=== PATIENT | female | born 1955 | race Caucasian/White ===

== ENCOUNTER 2020-07-09 15:30 | Emergency (ER) | payer OTHER ==
[2020-07-09] MEDS ORDERED: water pill PO (16:14)
[2020-07-09] MEDS ORDERED: HYDR12.55 PO (16:14)
--- NOTE | 2020-07-09 16:19 | REP ---
INDICATION: constipation, rectal pain. COMPARISON: None. TECHNIQUE: Supine AP radiograph. FINDINGS: There is some formed stool in the rectum with the rectum does not appear dilated. There is also some formed stool in the right colon. No colonic or small bowel dilation is seen. The bowel gas pattern is felt to be normal. 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 No acute bony abnormality. IMPRESSION: Normal bowel gas pattern. Some formed stool in the rectum without proximal distension. <Electronically signed by Clifford Irby > 07/09/20 [id number]
[2020-07-09] MEDS ORDERED: FLEET ENEMA PR ONE (17:30)
[2020-07-09] MEDS ORDERED: MIRA3350 PO (18:46)
[2020-07-09 19:20] VITALS: BP 189/91
== END 2020-07-09 19:48 | disposition home or self-care (01) ==
LOC: EDBD 15:30 → M ED 15:30
DX: K59.00 Constipation, unspecified (principal); I10 Essential (primary) hypertension; E66.9 Obesity, unspecified; Z79.899 Other long term (current) drug therapy

== ENCOUNTER 2020-11-11 10:40 | Inpatient (IN) | payer OTHER ==
[2020-11-11] VITALS (10 sets, daily range): BP systolic 135–198; BP diastolic 60–114
[~2020-11-11] VITALS: Ht 154.9 cm; Wt 80.5 kg
[2020-11-11] MEDS: LEVOTHYROXINE 25MCG TABLET (0.025MG) PO SCH (06:00)
[2020-11-11] MEDS: NYSTATIN 100,000 UNITS/GM TOPICAL PWD 15 GM TOP SCH (09:00)
[~2020-11-11 10:40] MED LIST: HYDR12.55 PO; MIRA3350 PO; water pill PO
[2020-11-11] MEDS ORDERED: METO100T5 PO (10:57)
[2020-11-11] MEDS ORDERED: SILV50CR (10:57)
[2020-11-11] MEDS ORDERED: FURO20TA2 PO (10:57)
[2020-11-11] MEDS ORDERED: POTA1TAB14 PO (10:57)
[2020-11-11] MEDS ORDERED: FUROSEMIDE 40MG/4ML VIAL (J1940) IV SCH ×2 (12:00→21:00)
[2020-11-11 12:45] LABS: BASO % 0.8 % (0.0-1.0); EOS # 0.2 10^3/uL (0.0-0.5); HEMATOCRIT 37.2 % (36.0-47.0); HEMOGLOBIN 11.3 g/dl (12.0-15.5); LYMPH # 1.1 10^3/uL (1.5-5.0); LYMPH % 19.8 % (24.0-44.0); MEAN CORPUSCULAR HEMOGLOBIN 27.9 pg (27.0-33.0); MEAN CORPUSCULAR HGB CONC 30.4 g/dl (32.0-36.5); MEAN CORPUSCULAR VOLUME 91.9 fl (80.0-96.0); MONO # 0.3 10^3/uL (0.0-0.8); MONO % 5.5 % (2.0-8.0); NEUTROPHILS # 3.7 10^3/uL (1.5-8.5); NEUTROPHILS % 69.9 % (36.0-66.0); PLATELET COUNT, AUTOMATED 187 10^3/uL (150-450); RED BLOOD COUNT 4.05 10^6/uL (4.00-5.40); WHITE BLOOD COUNT 5.3 10^3/uL (4.0-10.0)
[2020-11-11 13:26] LABS: ALT/SGPT 15 U/L (12-78); BILIRUBIN,DIRECT 0.3 MG/DL (0.0-0.2); BILIRUBIN,TOTAL 0.7 MG/DL (0.2-1.0); BLOOD UREA NITROGEN 37 MG/DL (7-18); CALCIUM LEVEL 8.6 MG/DL (8.8-10.2); CARBON DIOXIDE LEVEL 32 MEQ/L (21-32); CHLORIDE LEVEL 109 MEQ/L (98-107); CK-MB VALUE MASS 2.3 NG/ML (<3.6); CPK CREATINE PHOSPHOKINASE 42 U/L (26-192); FREE T4 1.38 NG/DL (0.76-1.46); GLUCOSE, FASTING 118 MG/DL (70-100); MB/CK RELATIVE INDEX 5.48 (< OR =4); POTASSIUM SERUM 4.1 MEQ/L (3.5-5.1); SODIUM LEVEL 145 MEQ/L (136-145); TOTAL PROTEIN 6.6 GM/DL (6.4-8.2); TROPONIN I 0.04 NG/ML (< 0.10)
[2020-11-11] MEDS ORDERED: LABETALOL 100MG/20ML VIAL IV STA (13:35)
--- NOTE | 2020-11-11 13:35 | REP ---
INDICATION: CVA - Nursing interventions must not delay CT. COMPARISON: None. TECHNIQUE: CT BRAIN PERFORMED IN THE AXIAL PLANE. CORONAL RECONSTRUCTION IMAGES ARE PERFORMED. FINDINGS: There is mild atrophy and periventricular small vessel ischemic change. There is no midline shift or mass effect. There is no acute intracranial hemorrhage. There is no extra-axial fluid collection. Bone window examination is unremarkable. The visualized paranasal sinuses and mastoid air cells are clear. IMPRESSION: No acute intracranial hemorrhage, midline shift or mass effect. Very mild atrophy and periventricular small vessel ischemic change. <Electronically signed by Dk Friend > 11/11/20 [id number]
[2020-11-11] MEDS ORDERED: METF10004 PO (13:41)
[2020-11-11] MEDS ORDERED: ASPIRIN 325 MG TAB PO ONE (13:45)
[2020-11-11 14:12] LABS: INR 1.1; PROTHROMBIN TIME 14.4 SECONDS (12.5-14.3)
[2020-11-11] MEDS ORDERED: niCARdipine IV 40 MG in IV 1 EA IV SCH ×2 (14:12→16:19)
[2020-11-11 14:13] LABS: PARTIAL THROMBOPLASTIN TIME 30.8 SECONDS (24.2-38.5)
--- NOTE | 2020-11-11 14:19 | REP ---
INDICATION: CVA. COMPARISON: None. TECHNIQUE: Portal AP chest with the patient semi upright. FINDINGS: The right hemidiaphragm and right costophrenic angle are obscured suggesting a right lung infiltrate and/or pleural effusion. Left lung is clear. Cardiac size is enlarged. The brandi, mediastinum, and skeletal structures are unremarkable. IMPRESSION: Right lung infiltrate/effusion/combination. Cardiomegaly. <Electronically signed by Dk Gibbs > 11/11/20 [id number]
[2020-11-11 14:51] LABS: RSV AMPLIFICATION NEGATIVE (NEGATIVE)
--- NOTE | 2020-11-11 14:53 | HPEPDOC ---
General Date of Admission 11/11/20 Date of Service: Nov 11, 2020 Chief Complaint The patient is a 65-year-old female admitted with a reason for visit of arm numbness. Source: Patient Exam Limitations: Mild cognitive slowing Timing/Duration: 4-6 hours History of Present Illness Patient is 65 years old female with past history of hypertension, urinary incontinence, type 2 diabetes, hyperlipidemia presented to the hospital with left jaw and left arm weakness. Patient stated that in the morning around 9:30 she had left jaw numbness with left arm numbness lasted around 30 minutes. After 30 minutes his symptoms resolved. Patient denied any headache, any focal weaknesses, slurry speech, visual disturbance. Patient extremely poor historian. Patient denied any fever or chills, diarrhea. In ER patient was found to have blood pressure of 234/115, labs shows no leukocytosis, hemoglobin 11.3, creatinine 1.3, troponin 0.04, TSH 8.1. CT head negative for acute bleed or ischemic stroke. EKG negative for acute ischemic changes Home Medications Scheduled Furosemide (Furosemide) 20 Mg Tablet, 20 MG PO DAILY, (Reported) Metformin HCl (Metformin HCl) 1,000 Mg Tablet, 1,000 MG PO DAILY, (Reported) ALL OUT OF THIS MED, HAS NOT TAKEN IN ABOUT 1 MONTH Metoprolol Tartrate (Metoprolol Tartrate) 100 Mg Tablet, 100 MG PO DAILY, (Reported) Potassium Chloride (Potassium Chloride) 20 Meq Tablet.er, 20 MEQ PO DAILY, (Reported) Allergies Coded Allergies: codeine (Verified Adverse Reaction, Mild, nausea, 11/11/20) Past Medical History Medical History hypertension, urinary incontinence, type 2 diabetes, hyperlipidemia Family History I personally reviewed family medical history and found not pertinent Social History * Smoker: Denies Alcohol: Denies Drugs: denies A-FIB/CHADSVASC A-FIB History Current/History of A-Fib/PAF?: No Current PO Anticoag Therapy: No Review of Systems Constitutional: Denies: Chills, Fever Eyes: Denies: Pain ENT: Denies: Head Aches Skin: Denies: Rash Pulmonary: Denies: Dyspnea Cardiovascular: Denies: Chest Pain, Palpitations Gastrointestinal: Denies: Nausea Genitourinary: Denies: Dysuria Hematologic: Denies: Bruising Endocrine: Denies: Polydipsia Musculoskeletal: Denies: Neck Pain Neurological: Reports: Numbness Psych: Reports: Mood Normal Physical Examination General Exam: Positive: Alert, Cooperative Eye Exam: Positive: PERRLA ENT Exam: Positive: Atraumatic Neck Exam: Positive: Supple, JVD, thyromegaly Chest Exam: Positive: Clear to auscultation Heart Exam: Positive: Rate Normal Telemetry: Positive: No significant arrhythmia Abdomen Exam: Positive: Normal bowel sounds Extremity Exam: Positive: Swelling Skin Exam: Positive: Breakdown (multiple skin breakdown of right distal leg, with mild erythema, skin blister) Neuro Exam: Positive: Strength at 5/5 X4 ext, Cranial Nerves 3-12 NL, Other (mild left eye ptosis) Psych Exam: Positive: Mental status NL Vital Signs Vital Signs Date Time Temp Pulse Resp B/P (MAP) Pulse Ox O2 Delivery O2 Flow Rate FiO2 11/11/20 13:56 61 229/102 11/11/20 12:29 97.5 11/11/20 10:55 16 96 Room Air Laboratory Data Labs 24H Laboratory Tests 2 11/11/20 11:01: Immature Granulocyte % (Auto) 0.0, Neutrophils (%) (Auto) 69.9H, Lymphocytes (%) (Auto) 19.8L, Monocytes (%) (Auto) 5.5, Eosinophils (%) (Auto) 4.0H, Basophils (%) (Auto) 0.8, Neutrophils # (Auto) 3.7, Lymphocytes # (Auto) 1.1L, Monocytes # (Auto) 0.3, Eosinophils # (Auto) 0.2, Basophils # (Auto) 0.0, Nucleated Red B lood Cells % (auto) 0.0, Anion Gap 4L, Glomerular Filtration Rate 44.0L, Calcium Level 8.6L, Total Bilirubin 0.7, Direct Bilirubin 0.3H, Aspartate Amino Transf (AST/SGOT) 18, Alanine Aminotransferase (ALT/SGPT) 15, Alkaline Phosphatase 282H, Total Creatine Kinase 42, Creatine Kinase MB 2.3, Creatine Kinase MB Relative Index 5.48H, Troponin I 0.04, Total Protein 6.6, Albumin 3.0L, Albumin/Globulin Ratio 0.8L, Thyroid Stimulating Hormone (TSH) 8.180H, Free Thyroxine 1.38 11/11/20 12:15: Prothrombin Time 14.4H, Prothromb Time International Ratio 1.10, Activated Partial Thromboplast Time 30.8 11/11/20 13:53: CBC/BMP Laboratory Tests 11/11/20 11:01 Assessment/Plan Patient is 65 years old female with past history of hypertension, urinary inc ontinence, type 2 diabetes, hyperlipidemia presented to the hospital with left jaw and left arm weakness. Patient stated that in the morning around 9:30 she had left jaw numbness with left arm numbness lasted around 30 minutes. After 30 minutes his symptoms resolved. Patient denied any headache, any focal weaknesses, slurry speech, visual disturbance. Patient extremely poor historian. Patient denied any fever or chills, diarrhea. In ER patient was found to have blood pressure of 234/115, labs shows no leukocytosis, hemoglobin 11.3, creatinine 1.3, troponin 0.04, TSH 8.1. CT head negative for acute bleed or ischemic stroke. EKG negative for acute ischemic changes Problems (1) TIA (transient ischemic attack) Status: Acute Problem Text: Patient has multiple risk factors CVA including type 2 diabetes, hypertension, obesity CT head negative We'll proceed with MRA and MRI of the brain Aspirin, statin (2) Hypertensive emergency Status: Acute Problem Text: Will control blood pressure with nicardipine drip Permissive hypertension for next 8 hours to keep blood pressure in the range 170-180 (3) Hyperlipidemia Status: Chronic Problem Text: I started atorvastatin Will check liver profile (4) Type 2 diabetes mellitus Status: Chronic Problem Text: Diabetes diet Insulin sliding scale (5) CHF (congestive heart failure) Status: Acute Problem Text: Patient has significant legs edema, more on the right leg, plus JVD Will check Doppler ultrasound for DVT Cardiac diet Echo, cardiac diet I's and O's Lasix IV twice a day (6) Hypothyroidism Status: Chronic Problem Text: TSH elevated to 8 I started levothyroxine 25 g daily I will check anti-TPO antibody, thyroid profile, lipid profile (7) NELY (acute kidney injury) Status: Acute Problem Text: Creatinine elevated 1.3 Could be secondary to intravascular depletion in top of diabetes nephropathy Continue to monitor Plan / VTE VTE Prophylaxis Ordered?: Yes VICENTA FREDERICK DO Nov 11, 2020 14:53
--- NOTE | 2020-11-11 15:46 | REP ---
INDICATION: dvt COMPARISON: None. TECHNIQUE: Real time compression and duplex Doppler interrogation of the right lower extremity deep venous system is performed. FINDINGS: The right common femoral, superficial femoral and popliteal veins are fully compressible with transducer pressure and demonstrate normal spontaneous and phasic flow, without evidence of deep venous thrombosis. IMPRESSION: No evidence of deep venous thrombosis of the right lower extremity femoral popliteal venous system. <Electronically signed by Dk Friend > 11/11/20 0090
--- NOTE | 2020-11-11 16:15 | REP ---
INDICATION: CVA. COMPARISON: Head CT earlier the same day. TECHNIQUE: T1 and diffusion-weighted images obtained. FINDINGS: No evidence of restricted diffusion to suggest acute infarction. 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 IMPRESSION: No evidence of restricted diffusion to suggest acute infarction. <Electronically signed by Tyler Dobbs > 11/11/20 [id number]
[2020-11-11 17:15] LABS: CHOLESTEROL LEVEL 153 MG/DL (<200); FREE THYROXINE INDEX 3.3 % (1.3-4.8); HDL CHOLESTEROL 45 MG/DL (>40); LDL CHOLESTEROL 86 MG/DL (<100); NON-HDL-C 108 MG/DL; T UPTAKE 41 % (30-39); TRIGLYCERIDES LEVEL 110 MG/DL (<150)
[2020-11-11 17:59] LABS: THYROID PEROXIDASE ANTIBODY < 28.0 U/ML (<60.0)
[2020-11-11] MEDS: ATORVASTATIN 20 MG TAB PO SCH (18:54)
[2020-11-11 19:25] LABS: NT-PRO BNP 21607 PG/ML (<125)
[2020-11-11] MEDS: ACETAMINOPHEN TAB 650MG DOSE (2X325MG) PO PRN (21:53)
[2020-11-12] VITALS (13 sets, daily range): BP systolic 118–169; BP diastolic 58–79
[2020-11-12 05:17] LABS: HEMATOCRIT 35.5 % (36.0-47.0); HEMOGLOBIN 10.9 g/dl (12.0-15.5); MEAN CORPUSCULAR HEMOGLOBIN 27.3 pg (27.0-33.0); MEAN CORPUSCULAR HGB CONC 30.7 g/dl (32.0-36.5); PLATELET COUNT, AUTOMATED 185 10^3/uL (150-450); RED BLOOD COUNT 3.99 10^6/uL (4.00-5.40)
[2020-11-12 05:38] LABS: ALBUMIN 2.9 GM/DL (3.2-5.2); BILIRUBIN,TOTAL 0.7 MG/DL (0.2-1.0); CALCIUM LEVEL 8.5 MG/DL (8.8-10.2); CREATININE FOR GFR 1.3 MG/DL (0.55-1.30); POTASSIUM SERUM 3.5 MEQ/L (3.5-5.1); TOTAL PROTEIN 6.8 GM/DL (6.4-8.2)
[2020-11-12] MEDS: LEVOTHYROXINE 25MCG TABLET (0.025MG) PO SCH (06:31)
[2020-11-12] MEDS: NYSTATIN 100,000 UNITS/GM TOPICAL PWD 15 GM TOP SCH (08:18)
[2020-11-12] MEDS: ENOXAPARIN 40MG/0.4ML SYRINGE (J1650 PER 10MG) SC SCH (08:18)
[2020-11-12] MEDS: FUROSEMIDE 40MG/4ML VIAL (J1940) IV SCH ×3 (08:20→23:33)
[2020-11-12] MEDS: ASPIRIN 81 MG CHEW TABLET PO SCH (08:20)
[2020-11-12] MEDS: ATORVASTATIN 20 MG TAB PO SCH (08:21)
[2020-11-12] MEDS: POTASSIUM CHLORIDE 10 MEQ SR TABLET PO SCH (08:22)
[2020-11-12] MEDS: METOPROLOL TARTRATE 100 MG TAB PO SCH (08:22)
[2020-11-12] MEDS ORDERED: POTASSIUM CHLORIDE 10 MEQ SR TABLET PO ONE (12:00)
--- NOTE | 2020-11-12 12:17 | IPNPDOC ---
Text Note Date of Service The patient was seen on 11/12/20. NOTE Subjective: Patient stated that she feels better today. She denies any focal n eurological deficits. Objective: GENERAL APPEARANCE: Obese female HEENT: no scleral icterus, plus JVD, EOMI CARDIOVASCULAR: S1S2 LUNGS: Diminished lung sounds bilaterally ABDOMEN: soft & not tender w palpitation MUSCULOSKELETAL: +2 nonpitting edema, mild erythema of the distal part of right leg INTEGUMENT: no generalized pallor NEUROLOGICAL: cranial nerve function from 2-12 intact intact, follows commands, speech not dysarthric, mild left eye ptosis Assessment and plan Patient is 65 years old female with past history of hypertension, urinary incontinence, type 2 diabetes, hyperlipidemia presented to the hospital with left jaw and left arm weakness. Patient stated that in the morning around 9:30 she had left jaw numbness with left arm numbness lasted around 30 minutes. After 30 minutes his symptoms resolved. Patient denied any headache, any focal weaknesses, slurry speech, visual disturbance. Patient extremely poor historian. Patient denied any fever or chills, diarrhea. In ER patient was found to have blood pressure of 234/115, labs shows no leukocytosis, hemoglobin 11.3, creatinine 1.3, troponin 0.04, TSH 8.1. CT head negative for acute bleed or ischemic stroke. EKG negative for acute ischemic changes (1) TIA (transient ischemic attack) Patient has multiple risk factors CVA including type 2 diabetes, hypertension, obesity CT head negative, brain MRI negative for stroke, MRA with contrast was not done due to compromised kidney function Will proceed with Doppler carotid ultrasound No focal neurological deficiency today Aspirin, statin (2) Hypertensive emergency/hypertension Resolved Continue lisinopril 20 mg, amlodipine 10 mg by mouth (3) Hyperlipidemia Continue atorvastatin (4) Type 2 diabetes mellitus Diabetes diet Insulin sliding scale Glucose level under control (5) acute CHF (congestive heart failure) Patient has significant legs edema, more on the right leg, plus JVD Doppler ultrasound for DVT of right leg negative BNP elevated to 21 607 Cardiac diet Await Echo, cardiac diet I's and O's Lasix IV twice a day (6) Hypothyroidism TSH elevated to 8 I started levothyroxine 25 g daily anti-TPO antibody within normal limit (7) NELY (acute kidney injury) Creatinine elevated 1.3 Could be secondary to intravascular depletion in top of diabetes nephropathy Continue to monitor Right leg cellulitis Patient has erythema on the distal part of the right leg superimposed with edema secondary to CHF Will start cefazolin IV VS,Fishbone, I+O VS, Fishbone, I+O Laboratory Tests 11/12/20 04:52 Vital Signs Date Time Temp Pulse Resp B/P (MAP) Pulse Ox O2 Delivery O2 Flow Rate FiO2 11/12/20 09:50 60 118/58 (78) 11/12/20 08:14 98.4 20 91 Room Air 11/11/20 20:00 2.0 I&O- Last 24 Hours up to 6 AM 11/12/20 06:00 Intake Total 387 ml Output Total 1225 ml Balance -838 ml VICENTA FREDERICK DO Nov 12, 2020 12:17
--- NOTE | 2020-11-12 13:35 | REP ---
INDICATION: TIA COMPARISON: None. TECHNIQUE: Real-time ultrasound evaluation and duplex Doppler interrogation of the extracranial carotid vasculature is performed. FINDINGS: There is mild plaquing and narrowing in both carotid bulbs extending into the internal and external carotid arteries. Luminal narrowing is less than 50%. There is no evidence of hemodynamically significant stenosis of either internal carotid artery. Normal flow velocities are seen. The vertebral arteries demonstrate normal direction of flow. RIGHT LEFT Peak systolic velocity ICA 63.5 cm/s 55.4 cm/s End diastolic velocity ICA 18.5 cm/s 13.3 cm/s Peak systolic velocity CCA 50.2 cm/s 43.7cm/s Peak systolic velocity ECA 53.1 cm/s 67.6 cm/s ICA/CCA ratio 1.3 1.3 IMPRESSION: Bilateral luminal narrowing of the internal carotid arteries less than 50%. No evidence of hemodynamically significant stenosis. <Electronically signed by Dk Friend > 11/12/20 0072
[2020-11-12] MEDS: ceFAZolin SOD 1 GM in D5W MINI-BAG PLUS 50 ML IV SCH ×2 (13:40→20:43)
--- NOTE | 2020-11-12 17:52 | ECGEPIP ---
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
[2020-11-13] VITALS (11 sets, daily range): BP systolic 128–212; BP diastolic 65–108
[2020-11-13] MEDS ORDERED: METOPROLOL TART 50 MG TAB PO ONE (03:40)
[2020-11-13] MEDS: LEVOTHYROXINE 25MCG TABLET (0.025MG) PO SCH (06:07)
[2020-11-13] MEDS: ceFAZolin SOD 1 GM in D5W MINI-BAG PLUS 50 ML IV SCH ×3 (06:07→21:42)
[2020-11-13] MEDS ORDERED: POTASSIUM CHLORIDE 10 MEQ SR TABLET PO ONE (08:10)
[2020-11-13] MEDS: FUROSEMIDE 40MG/4ML VIAL (J1940) IV SCH ×3 (09:25→23:48)
[2020-11-13] MEDS: ENOXAPARIN 40MG/0.4ML SYRINGE (J1650 PER 10MG) SC SCH (09:25)
[2020-11-13] MEDS: ASPIRIN 81 MG CHEW TABLET PO SCH (09:26)
[2020-11-13] MEDS: ATORVASTATIN 20 MG TAB PO SCH (09:29)
[2020-11-13] MEDS: POTASSIUM CHLORIDE 10 MEQ SR TABLET PO SCH (09:29)
[2020-11-13] MEDS: NYSTATIN 100,000 UNITS/GM TOPICAL PWD 15 GM TOP SCH (09:30)
[2020-11-13] MEDS: METOPROLOL TARTRATE 100 MG TAB PO SCH (09:30)
--- NOTE | 2020-11-13 10:47 | ECHO ---
DATE OF PROCEDURE: 11/12/2020 Age: 65 Gender: Female Height: 61 inches Weight: 189 pounds Body Surface Area: 1.88 m2 PATIENT LOCATION: Inpatient ICU Room 3205. REFERRING PHYSICIAN: Kevin Gracia DO. INDICATION: TIA. MEASUREMENTS: 2D Measurements: RV 4.2 cm LV 5.0 cm Septum 1.4 cm Posterior wall 1.4 cm Aortic Root 2.8 cm LA 4.4 cm LVEF 50% Doppler Measurements: AV 1.23 m/s LVOT 0.8 m/s LVOT diameter 1.9 cm MV-E 87, A 89, EA ratio 1 Early mitral deceleration time 236 msec E prime medial 4, A prime medial 3, E prime lateral 4.4 Average E/E prime ratio 20.7/PCWP 27.6 mmHg PV - 0.7 m/s Pulmonary artery acceleration time 100 msec RVSP 37 mmHg IVC 2.0 cm COMMENTS: Sinus bradycardia without intraventricular conduction disturbance. M-mode and 2-dimensional echocardiography was performed with pulse, continuous wave, color flow, and tissue Doppler studies. Moderate symmetrical left ventricle hypertrophy with somewhat speckled appearance suggestive of amyloidosis and global mild hypokinesis. Mildly dilated left atrium with Doppler evidence of grade 1 LV diastolic dysfunction and significantly elevated mean left atrial pressure. Mildly dilated right ventricle with a slight right ventricular free wall hypokinesis and mild pulmonary hypertension. Right atrium upper limits of normal with slightly dilated IVC and slightly reduced respiratory collapse suggestive of at least central venous pressure upper limits of normal to slightly increased. Normal aortic root diameters. Mild aortic valvular sclerosis without functional abnormality. Moderate mitral annular calcification with some thickening of the mitral leaflets with low flow appearance of leaflet motion but no obvious posterior systolic buckling. No inflow tract obstruction but at least moderate insufficiency. Normal appearing tricuspid valve with at least mild insufficiency. Unable to detect any intracardiac mass. Small posterior pericardial effusion fairly localized to the AV groove measuring 0.8 cm at that point but no cardiac chamber compression. MTDD
--- NOTE | 2020-11-13 13:40 | IPNPDOC ---
Text Note Date of Service The patient was seen on 11/13/20. NOTE Subjective: No any acute events overnight. Patient reported that she feels better today. She denied fever or chills. Patient had elevated blood pressure to 175/80 in the morning Objective: GENERAL APPEARANCE: Obese female HEENT: no scleral icterus, plus JVD, EOMI CARDIOVASCULAR: S1S2 LUNGS: Diminished lung sounds bilaterally ABDOMEN: soft & not tender w palpitation MUSCULOSKELETAL: +2 nonpitting edema, mild erythema of the distal part of right leg INTEGUMENT: no generalized pallor NEUROLOGICAL: cranial nerve function from 2-12 intact intact, follows commands, speech not dysarthric, mild left eye ptosis Assessment and plan Patient is 65 years old female with past history of hypertension, urinary incontinence, type 2 diabetes, hyperlipidemia presented to the hospital with left jaw and left arm weakness. Patient stated that in the morning around 9:30 she had left jaw numbness with left arm numbness lasted around 30 minutes. After 30 minutes his symptoms resolved. Patient denied any headache, any focal weaknesses, slurry speech, visual disturbance. Patient extremely poor historian. Patient denied any fever or chills, diarrhea. In ER patient was found to have blood pressure of 234/115, labs shows no leukocytosis, hemoglobin 11.3, creatinine 1.3, troponin 0.04, TSH 8.1. CT head negative for acute bleed or ischemic stroke. EKG negative for acute ischemic changes (1) TIA (transient ischemic attack) Patient has multiple risk factors CVA including type 2 diabetes, hypertension, obesity CT head negative, brain MRI negative for stroke, MRA with contrast was not done due to compromised kidney function Doppler carotid ultrasound No evidence of deep venous thrombosis of the right lower extremity femoral popliteal venous system No focal neurological deficiency Aspirin, statin (2) Hypertensive emergency/hypertension amlodipine 10 mg by mouth I increased the dose of lisinopril to 40 mg, added hydralazine 10 mg every 8 hours (3) Hyperlipidemia Continue atorvastatin (4) Type 2 diabetes mellitus Diabetes diet Insulin sliding scale Glucose level under control (5) acute CHF (congestive heart failure) Patient has significant legs edema, more on the right leg, plus JVD Doppler ultrasound for DVT of right leg negative BNP elevated to 21 607 Cardiac diet Echo showed ejection fraction of 50%, Mildly dilated left atrium with Doppler evidence of grade 1 LV diastolic dysfunction and significantly elevated mean le ft atrial pressure. Mildly dilated right ventricle with a slight right ventricular free wall hypokinesis and mild pulmonary hypertension. Right atrium upper limits of normal with slightly dilated IVC and slightly reduced respiratory collapse suggestive of at least central venous pressure upper limits of normal to slightly increased. Patient developed good urine output around 4 L for past 24 hours Her body weight decreased from 90.5 kg to 87.5 kg cardiac diet I's and O's Lasix IV twice a day Hypothyroidism TSH elevated to 8 I started levothyroxine 25 g daily anti-TPO antibody within normal limit NELY (acute kidney injury) Creatinine elevated 1.3 Could be secondary to intravascular depletion in top of diabetes nephropathy Continue to monitor Right leg cellulitis Patient has erythema on the distal part of the right leg superimposed with edema secondary to CHF Continue cefazolin IV VS,Fishbone, I+O VS, Fishbone, I+O Vital Signs Date Time Temp Pulse Resp B/P (MAP) Pulse Ox O2 Delivery O2 Flow Rate FiO2 11/13/20 12:00 2.0 11/13/20 09:28 66 178/88 11/13/20 09:00 97.5 24 98 Room Air I&O- Last 24 Hours up to 6 AM 11/13/20 06:00 Intake Total 710 ml Output Total 2350 ml Balance -1640 ml VICENTA FREDERICK DO Nov 13, 2020 13:40
[2020-11-13] MEDS: **hydrALAZINE** 10 MG TAB PO SCH ×2 (14:32→21:41)
[2020-11-14] VITALS (8 sets, daily range): BP systolic 127–182; BP diastolic 58–95
[2020-11-14 06:26] LABS: BASO % 0.6 % (0.0-1.0); EOS # 0.2 10^3/uL (0.0-0.5); EOS % 4.9 % (0.0-3.0); HEMATOCRIT 35.5 % (36.0-47.0); LYMPH # 1.1 10^3/uL (1.5-5.0); LYMPH % 22.2 % (24.0-44.0); MEAN CORPUSCULAR HEMOGLOBIN 27.4 pg (27.0-33.0); MEAN CORPUSCULAR VOLUME 88.5 fl (80.0-96.0); MONO # 0.5 10^3/uL (0.0-0.8); MONO % 9.3 % (2.0-8.0); NEUTROPHILS # 3.1 10^3/uL (1.5-8.5); NEUTROPHILS % 62.8 % (36.0-66.0); PLATELET COUNT, AUTOMATED 176 10^3/uL (150-450); RED BLOOD COUNT 4.01 10^6/uL (4.00-5.40); WHITE BLOOD COUNT 4.9 10^3/uL (4.0-10.0)
[2020-11-14] MEDS: LEVOTHYROXINE 25MCG TABLET (0.025MG) PO SCH (06:35)
[2020-11-14] MEDS: ceFAZolin SOD 1 GM in D5W MINI-BAG PLUS 50 ML IV SCH ×3 (06:36→22:14)
[2020-11-14] MEDS: **hydrALAZINE** 10 MG TAB PO SCH ×3 (06:37→17:15)
[2020-11-14 07:01] LABS: BILIRUBIN,TOTAL 0.7 MG/DL (0.2-1.0); CALCIUM LEVEL 8.8 MG/DL (8.8-10.2); CREATININE FOR GFR 1.24 MG/DL (0.55-1.30); GLOMERULAR FILTRATION RATE 46.5 (>45); POTASSIUM SERUM 3.5 MEQ/L (3.5-5.1); TOTAL PROTEIN 6.8 GM/DL (6.4-8.2)
[2020-11-14] MEDS: NYSTATIN 100,000 UNITS/GM TOPICAL PWD 15 GM TOP SCH (08:38)
[2020-11-14] MEDS: FUROSEMIDE 40MG/4ML VIAL (J1940) IV SCH ×2 (08:39→17:15)
[2020-11-14] MEDS: ENOXAPARIN 40MG/0.4ML SYRINGE (J1650 PER 10MG) SC SCH (08:39)
[2020-11-14] MEDS: ATORVASTATIN 20 MG TAB PO SCH (08:39)
[2020-11-14] MEDS: METOPROLOL TARTRATE 100 MG TAB PO SCH (08:39)
[2020-11-14] MEDS: ASPIRIN 81 MG CHEW TABLET PO SCH (08:39)
[2020-11-14] MEDS: POTASSIUM CHLORIDE 10 MEQ SR TABLET PO SCH (08:40)
--- NOTE | 2020-11-14 14:55 | IPNPDOC ---
Text Note Date of Service The patient was seen on 11/14/20. NOTE Subjective: No any acute events. Patient stated that she feels little bit bett er. In the morning her systolic blood pressure 178, after morning pills blood pressure normalized. Objective: GENERAL APPEARANCE: Obese female HEENT: no scleral icterus, plus JVD, EOMI CARDIOVASCULAR: S1S2 LUNGS: Diminished lung sounds bilaterally ABDOMEN: soft & not tender w palpitation MUSCULOSKELETAL: +2 nonpitting edema, mild erythema of the distal part of right leg INTEGUMENT: no generalized pallor NEUROLOGICAL: cranial nerve function from 2-12 intact intact, follows commands, speech not dysarthric, mild left eye ptosis Assessment and plan Patient is 65 years old female with past history of hypertension, urinary incontinence, type 2 diabetes, hyperlipidemia presented to the hospital with left jaw and left arm weakness. Patient stated that in the morning around 9:30 she had left jaw numbness with left arm numbness lasted around 30 minutes. After 30 minutes his symptoms resolved. Patient denied any headache, any focal weaknesses, slurry speech, visual disturbance. Patient extremely poor historian. Patient denied any fever or chills, diarrhea. In ER patient was found to have blood pressure of 234/115, labs shows no leukocytosis, hemoglobin 11.3, creatinine 1.3, troponin 0.04, TSH 8.1. CT head negative for acute bleed or ischemic stroke. EKG negative for acute ischemic changes (1) TIA (transient ischemic attack) Patient has multiple risk factors CVA including type 2 diabetes, hypertension, obesity CT head negative, brain MRI negative for stroke, MRA with contrast was not done due to compromised kidney function. Will proceed with MRA today Doppler carotid ultrasound showed Bilateral luminal narrowing of the internal carotid arteries less than 50%. No evidence of hemodynamically significant stenosis. No focal neurological deficiency Continue with Aspirin, statin (2) Hypertensive emergency/hypertension amlodipine 10 mg by mouth I increased the dose of lisinopril to 40 mg, added hydralazine 10 mg every 8 hours (3) Hyperlipidemia Continue atorvastatin (4) Type 2 diabetes mellitus Diabetes diet Insulin sliding scale Glucose level under control (5) acute diastolic CHF (congestive heart failure) Patient has significant legs edema, more on the right leg, plus JVD Doppler ultrasound for DVT of right leg negative BNP elevated to 21 607 Cardiac diet Echo showed ejection fraction of 50%, Mildly dilated left atrium with Doppler evidence of grade 1 LV diastolic dysfunction and significantly elevated mean left atrial pressure. Mildly dilated right ventricle with a slight right ventricular free wall hypokinesis and mild pulmonary hypertension. Right atrium upper limits of normal with slightly dilated IVC and slightly reduced respiratory collapse suggestive of at least central venous pressure upper limits of normal to slightly increased. Her body weight decreased from 90.5 kg to 81.5 kg cardiac diet I's and O's Lasix IV twice a day Hypothyroidism TSH elevated to 8 Continue levothyroxine 25 g daily anti-TPO antibody within normal limit NELY (acute kidney injury) Improved, creatinine 1.2 Could be secondary to intravascular depletion in top of diabetes nephropathy Continue to monitor Right leg cellulitis Improved Patient has erythema on the distal part of the right leg superimposed with edema secondary to CHF Continue cefazolin IV VS,Fishbone, I+O VS, Fishbone, I+O Laboratory Tests 11/14/20 05:58 Vital Signs Date Time Temp Pulse Resp B/P (MAP) Pulse Ox O2 Delivery O2 Flow Rate FiO2 11/14/20 13:51 150/70 11/14/20 13:48 97.0 59 18 99 Nasal Cannula 2.0 I&O- Last 24 Hours up to 6 AM 11/14/20 05:59 Intake Total 1020 ml Output Total 2000 ml Balance -980 ml VICENTA FREDERICK DO Nov 14, 2020 14:55
[2020-11-15 00:45] VITALS: BP 147/73
[2020-11-15] MEDS: **hydrALAZINE** 10 MG TAB PO SCH ×4 (01:09→21:54)
[2020-11-15] MEDS: FUROSEMIDE 40MG/4ML VIAL (J1940) IV SCH ×3 (01:11→16:45)
[2020-11-15 04:00] VITALS: BP 173/74
[2020-11-15] MEDS: ceFAZolin SOD 1 GM in D5W MINI-BAG PLUS 50 ML IV SCH ×2 (04:38→13:25)
[2020-11-15] MEDS: LEVOTHYROXINE 25MCG TABLET (0.025MG) PO SCH (05:23)
[2020-11-15 05:42] LABS: BASO % 0.5 % (0.0-1.0); EOS # 0.2 10^3/uL (0.0-0.5); HEMATOCRIT 35.6 % (36.0-47.0); LYMPH # 1.3 10^3/uL (1.5-5.0); LYMPH % 24.4 % (24.0-44.0); MEAN CORPUSCULAR HEMOGLOBIN 27.4 pg (27.0-33.0); MEAN CORPUSCULAR HGB CONC 30.9 g/dl (32.0-36.5); MEAN CORPUSCULAR VOLUME 88.8 fl (80.0-96.0); MONO # 0.5 10^3/uL (0.0-0.8); MONO % 9.3 % (2.0-8.0); NEUTROPHILS # 3.4 10^3/uL (1.5-8.5); NEUTROPHILS % 61.3 % (36.0-66.0); PLATELET COUNT, AUTOMATED 180 10^3/uL (150-450); RED BLOOD COUNT 4.01 10^6/uL (4.00-5.40); WHITE BLOOD COUNT 5.5 10^3/uL (4.0-10.0)
[2020-11-15 06:06] LABS: ALBUMIN 2.9 GM/DL (3.2-5.2); BILIRUBIN,TOTAL 0.5 MG/DL (0.2-1.0); CALCIUM LEVEL 8.5 MG/DL (8.8-10.2); CREATININE FOR GFR 1.44 MG/DL (0.55-1.30); GLOMERULAR FILTRATION RATE 39.1 (>45); POTASSIUM SERUM 3.7 MEQ/L (3.5-5.1); TOTAL PROTEIN 6.6 GM/DL (6.4-8.2)
[2020-11-15 08:00] VITALS: BP 143/64
[2020-11-15] MEDS: NYSTATIN 100,000 UNITS/GM TOPICAL PWD 15 GM TOP SCH (09:11)
[2020-11-15] MEDS: ENOXAPARIN 40MG/0.4ML SYRINGE (J1650 PER 10MG) SC SCH (09:12)
[2020-11-15] MEDS: ASPIRIN 81 MG CHEW TABLET PO SCH (09:13)
[2020-11-15] MEDS: ATORVASTATIN 20 MG TAB PO SCH (09:13)
[2020-11-15] MEDS: POTASSIUM CHLORIDE 10 MEQ SR TABLET PO SCH (09:13)
[2020-11-15] MEDS: METOPROLOL TARTRATE 100 MG TAB PO SCH (09:14)
[2020-11-15 12:00] VITALS: BP 121/51
[2020-11-15] MEDS ORDERED: CEPHALEXIN 500 MG CAP PO SCH (13:00)
[2020-11-15 16:00] VITALS: BP 151/63
[2020-11-15] MEDS: CEPHALEXIN 500 MG CAP PO SCH ×2 (16:35→20:47)
--- NOTE | 2020-11-15 17:12 | IPNPDOC ---
Text Note Date of Service The patient was seen on 11/15/20. NOTE Subjective: No any acute events. Blood pressure was stable in the morning and throughout the day. Objective: GENERAL APPEARANCE: Obese female HEENT: no scleral icterus, plus JVD, EOMI CARDIOVASCULAR: S1S2 LUNGS: Diminished lung sounds bilaterally ABDOMEN: soft & not tender w palpitation MUSCULOSKELETAL: +2 nonpitting edema, mild erythema of the distal part of right leg INTEGUMENT: no generalized pallor NEUROLOGICAL: cranial nerve function from 2-12 intact intact, follows commands, speech not dysarthric, mild left eye ptosis Assessment and plan Patient is 65 years old female with past history of hypertension, urinary incontinence, type 2 diabetes, hyperlipidemia presented to the hospital with left jaw and left arm weakness. Patient stated that in the morning around 9:30 she had left jaw numbness with left arm numbness lasted around 30 minutes. After 30 minutes his symptoms resolved. Patient denied any headache, any focal weaknesses, slurry speech, visual disturbance. Patient extremely poor historian. Patient denied any fever or chills, diarrhea. In ER patient was found to have blood pressure of 234/115, labs shows no leukocytosis, hemoglobin 11.3, creatinine 1.3, troponin 0.04, TSH 8.1. CT head negative for acute bleed or ischemic stroke. EKG negative for acute ischemic changes (1) TIA (transient ischemic attack) Patient has multiple risk factors CVA including type 2 diabetes, hypertension, obesity CT head negative, brain MRI negative for stroke, MRA with contrast was not done due to compromised kidney function. Will proceed with MRA today Doppler carotid ultrasound showed Bilateral luminal narrowing of the internal carotid arteries less than 50%. No evidence of hemodynamically significant stenosis. No focal neurological deficiency Continue with Aspirin, statin (2) Hypertensive emergency/hypertension amlodipine 10 mg by mouth I increased the dose of lisinopril to 40 mg, added hydralazine 10 mg every 8 hours Blood pressure normalized and stable since morning (3) Hyperlipidemia Continue atorvastatin (4) Type 2 diabetes mellitus Diabetes diet Insulin sliding scale Glucose level under control (5) acute diastolic CHF (congestive heart failure) Patient has significant legs edema, more on the right leg, plus JVD Doppler ultrasound for DVT of right leg negative BNP elevated to 21 607 Cardiac diet Echo showed ejection fraction of 50%, Mildly dilated left atrium with Doppler evidence of grade 1 LV diastolic dysfunction and significantly elevated mean left atrial pressure. Mildly dilated right ventricle with a slight right ventricular free wall hypokinesis and mild pulmonary hypertension. Right atrium upper limits of normal with slightly dilated IVC and slightly reduced respiratory collapse suggestive of at least central venous pressure upper limits of normal to slightly increased. Her body weight decreased from 90.5 kg to 80.4 kg cardiac diet I's and O's Lasix IV twice a day On 11/14/20 [place] [address] Hypothyroidism TSH elevated to 8 Continue levothyroxine 25 g daily anti-TPO antibody within normal limit NELY (acute kidney injury) Worsening today due to diuresis Continue to monitor Right leg cellulitis Improved Patient has erythema on the distal part of the right leg superimposed with edema secondary to CHF Continued cephalexin by mouth VS,Fishbone, I+O VS, Fishbone, I+O Laboratory Tests 11/15/20 05:22 Vital Signs Date Time Temp Pulse Resp B/P (MAP) Pulse Ox O2 Delivery O2 Flow Rate FiO2 11/15/20 13:29 121/78 11/15/20 12:00 98.5 56 16 99 Nasal Cannula 2.0 I&O- Last 24 Hours up to 6 AM 11/15/20 06:00 Intake Total 1830 ml Output Total 3400 ml Balance -1570 ml VICENTA FREDERICK DO Nov 15, 2020 17:12
[2020-11-15 20:00] VITALS: BP 134/72
[2020-11-15] MEDS ORDERED: SENOKOT S TAB PO PRN (20:35)
[2020-11-15] MEDS ORDERED: MOM 30ML SUSPENSION UDC PO PRN (20:35)
[2020-11-15] MEDS: ACETAMINOPHEN TAB 650MG DOSE (2X325MG) PO PRN (20:47)
[2020-11-16] VITALS: BP 150/69
[2020-11-16 04:00] VITALS: BP 149/68
[2020-11-16 05:23] LABS: BASO % 0.7 % (0.0-1.0); EOS # 0.3 10^3/uL (0.0-0.5); EOS % 4.3 % (0.0-3.0); HEMATOCRIT 39.6 % (36.0-47.0); LYMPH # 1.8 10^3/uL (1.5-5.0); LYMPH % 28.6 % (24.0-44.0); MEAN CORPUSCULAR HEMOGLOBIN 27.8 pg (27.0-33.0); MEAN CORPUSCULAR HGB CONC 30.3 g/dl (32.0-36.5); MEAN CORPUSCULAR VOLUME 91.9 fl (80.0-96.0); MONO # 0.5 10^3/uL (0.0-0.8); MONO % 8.8 % (2.0-8.0); NEUTROPHILS # 3.5 10^3/uL (1.5-8.5); NEUTROPHILS % 57.4 % (36.0-66.0); PLATELET COUNT, AUTOMATED 176 10^3/uL (150-450); RED BLOOD COUNT 4.31 10^6/uL (4.00-5.40); WHITE BLOOD COUNT 6.1 10^3/uL (4.0-10.0)
[2020-11-16] MEDS: LEVOTHYROXINE 25MCG TABLET (0.025MG) PO SCH (05:30)
[2020-11-16 05:32] VITALS: BP 145/63
[2020-11-16] MEDS: **hydrALAZINE** 10 MG TAB PO SCH (05:32)
[2020-11-16 05:34] LABS: ALBUMIN 2.8 GM/DL (3.2-5.2); BILIRUBIN,TOTAL 0.6 MG/DL (0.2-1.0); CALCIUM LEVEL 8.4 MG/DL (8.8-10.2); CREATININE FOR GFR 1.38 MG/DL (0.55-1.30); GLOMERULAR FILTRATION RATE 41.1 (>45); MAGNESIUM LEVEL 2.1 MG/DL (1.8-2.4); TOTAL PROTEIN 7.1 GM/DL (6.4-8.2)
[2020-11-16 08:00] VITALS: BP 135/62
[2020-11-16] MEDS: ASPIRIN 81 MG CHEW TABLET PO SCH (08:25)
[2020-11-16] MEDS: METOPROLOL TARTRATE 100 MG TAB PO SCH (08:25)
[2020-11-16] MEDS: FUROSEMIDE 40MG/4ML VIAL (J1940) IV SCH ×2 (08:25)
[2020-11-16] MEDS: CEPHALEXIN 500 MG CAP PO SCH ×2 (08:25→13:19)
[2020-11-16] MEDS: ENOXAPARIN 40MG/0.4ML SYRINGE (J1650 PER 10MG) SC SCH (08:26)
[2020-11-16] MEDS: NYSTATIN 100,000 UNITS/GM TOPICAL PWD 15 GM TOP SCH (08:26)
[2020-11-16] MEDS: ATORVASTATIN 20 MG TAB PO SCH (08:26)
[2020-11-16] MEDS: POTASSIUM CHLORIDE 10 MEQ SR TABLET PO SCH (08:26)
[2020-11-16] MEDS ORDERED: LISI40TA4 PO (10:47)
[2020-11-16] MEDS ORDERED: LEVO25TA5 PO (10:47)
[2020-11-16] MEDS ORDERED: AMLO1TAB25 PO (10:47)
[2020-11-16] MEDS ORDERED: ASPI81CH8 PO (10:47)
[2020-11-16] MEDS ORDERED: TORS10TA3 PO (10:47)
[2020-11-16] MEDS ORDERED: CEPH500C PO (10:47)
[2020-11-16] MEDS ORDERED: NYST10006 TOP (10:47)
[2020-11-16] MEDS ORDERED: SENN-52 PO (10:47)
[2020-11-16] MEDS ORDERED: HYDR10TAB PO (10:47)
[2020-11-16] MEDS ORDERED: ATOR1TAB21 PO (10:47)
--- NOTE | 2020-11-16 15:54 | DS.PDOC ---
Discharge Summary General Date of Admission Nov 11, 2020 at 14:12 Date of Discharge 11/16/20 Discharge Summary PROCEDURES PERFORMED DURING STAY: [None]. ADMITTING DIAGNOSES: TIA (transient ischemic attack) Hypertensive emergency/hypertension Hyperlipidemia Type 2 diabetes mellitus acute diastolic CHF (congestive heart failure) Hypothyroidism NELY (acute kidney injury) Right leg cellulitis DISCHARGE DIAGNOSES: TIA (transient ischemic attack) Hypertensive emergency/hypertension Hyperlipidemia Type 2 diabetes mellitus acute diastolic CHF (congestive heart failure) Hypothyroidism NELY (acute kidney injury) Right leg cellulitis COMPLICATIONS/CHIEF COMPLAINT: TIA. HISTORY OF PRESENT ILLNESS: Patient is 65 years old female with past history of hypertension, urinary incontinence, type 2 diabetes, hyperlipidemia presented to the hospital with left jaw and left arm weakness. Patient stated that in the morning around 9:30 she had left jaw numbness with left arm numbness lasted around 30 minutes. After 30 minutes his symptoms resolved. Patient denied any headache, any focal weaknesses, slurry speech, visual disturbance. Patient extremely poor historian. Patient denied any fever or chills, diarrhea. In ER patient was found to have blood pressure of 234/115, labs shows no leukocytosis, hemoglobin 11.3, creatinine 1.3, troponin 0.04, TSH 8.1. CT head negative for acute bleed or ischemic stroke. EKG negative for acute ischemic changes HOSPITAL COURSE: During the hospital stay following issue addressed (1) TIA (transient ischemic attack) Patient has multiple risk factors CVA including type 2 diabetes, hypertension, obesity CT head negative, brain MRI negative for stroke, MRA with contrast was not done due to compromised kidney function. Patient refuses MRA Doppler carotid ultrasound showed Bilateral luminal narrowing of the internal carotid arteries less than 50%. No evidence of hemodynamically significant stenosis. No focal neurological deficiency Continue with Aspirin, statin (2) Hypertensive emergency/hypertension amlodipine 10 mg by mouth I increased the dose of lisinopril to 40 mg, added hydralazine 10 mg every 8 hours Blood pressure normalized and stable since morning (3) Hyperlipidemia Continue atorvastatin (4) Type 2 diabetes mellitus Diabetes diet Insulin sliding scale Glucose level under control (5) acute diastolic CHF (congestive heart failure) Patient has significant legs edema, more on the right leg, plus JVD Doppler ultrasound for DVT of right leg negative BNP elevated to 21 607 Cardiac diet Echo showed ejection fraction of 50%, Mildly dilated left atrium with Doppler ev idence of grade 1 LV diastolic dysfunction and significantly elevated mean left atrial pressure. Mildly dilated right ventricle with a slight right ventricular free wall hypokinesis and mild pulmonary hypertension. Right atrium upper limits of normal with slightly dilated IVC and slightly reduced respiratory collapse suggestive of at least central venous pressure upper limits of normal to slightly increased. Her body weight decreased from 90.5 kg to 80.4 kg cardiac diet I's and O's Lasix IV twice a day On 11/14/20 [place] [address] Hypothyroidism TSH elevated to 8 Continue levothyroxine 25 g daily anti-TPO antibody within normal limit NELY (acute kidney injury) Secondary to diuretics Continue to monitor Right leg cellulitis Improved Patient has erythema on the distal part of the right leg superimposed with edema secondary to CHF Continued cephalexin by mouth DISCHARGE MEDICATIONS: Please see below. ALLERGIES: Please see below. PHYSICAL EXAMINATION ON DISCHARGE: VITAL SIGNS: Please see below. GENERAL APPEARANCE: Obese female HEENT: no scleral icterus, plus JVD, EOMI CARDIOVASCULAR: S1S2 LUNGS: Diminished lung sounds bilaterally ABDOMEN: soft & not tender w palpitation MUSCULOSKELETAL: +2 nonpitting edema, mild erythema of the distal part of right leg INTEGUMENT: no generalized pallor NEUROLOGICAL: cranial nerve function from 2-12 intact intact, follows commands, speech not dysarthric, mild left eye ptosis LABORATORY DATA: Please see below. IMAGING: See above PROGNOSIS: Fair ACTIVITY: [As tolerated]. DIET: Cardiac DISPOSITION: Home Health Service. 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 TIME SPENT ON DISCHARGE: 40minutes. Vital Signs/I&Os Vital Signs Date Time Temp Pulse Resp B/P (MAP) Pulse Ox O2 Delivery O2 Flow Rate FiO2 11/16/20 08:00 97.8 69 18 135/62 (86) 91 Room Air 11/15/20 12:00 2.0 I&O- Last 24 Hours up to 6 AM 11/16/20 05:59 Intake Total 870 ml Output Total 2625 ml Balance -1755 ml Laboratory Data Labs 24H Laboratory Tests 2 11/16/20 05:05: Immature Granulocyte % (Auto) 0.2, Neutrophils (%) (Auto) 57.4, Lymphocytes (%) (Auto) 28.6, Monocytes (%) (Auto) 8.8H, Eosinophils (%) (Auto) 4.3H, Basophils (%) (Auto) 0.7, Neutrophils # (Auto) 3.5, Lymphocytes # (Auto) 1.8, Monocytes # (Auto) 0.5, Eosinophils # (Auto) 0.3, Basophils # (Auto) 0.0, Nucleated Red Blood Cells % (auto) 0.0, Anion Gap 3L, Glomerular Filtration Rate 41.1L, Calcium Level 8.4L, Magnesium Level 2.1, Total Bilirubin 0.6, Aspartate Amino Transf (AST/SGOT) 21, Alanine Aminotransferase (ALT/SGPT) 8L, Alkaline Phosphatase 274H, Total Protein 7.1, Albumin 2.8L, Albumin/Globulin Ratio 0.7L CBC/BMP Laboratory Tests 11/16/20 05:05 Microbiology Microbiology 11/11/20 Blood Culture - Preliminary, Resulted No Growth after 72 hours. All specime... 11/11/20 Blood Culture - Preliminary, Resulted No Growth after 72 hours. All specime... Discharge Medications Scheduled Amlodipine Besylate (Amlodipine Besylate) 10 Mg Tablet, 10 MG PO DAILY Aspirin (Children's Aspirin) 81 Mg Tab.chew, 81 MG PO DAILY Atorvastatin Calcium (Atorvastatin Calcium) 20 Mg Tablet, 40 MG PO DAILY Cephalexin (Cephalexin) 500 Mg Capsule, 500 MG PO QID Hydralazine HCl (Hydralazine HCl) 10 Mg Tablet, 10 MG PO TID Levothyroxine Sodium (Levothyroxine Sodium) 25 Mcg Tablet, 25 MCG PO DAILY@06 Lisinopril (Lisinopril) 40 Mg Tablet, 1 TAB PO DAILY Metformin HCl (Metformin HCl) 1,000 Mg Tablet, 1,000 MG PO DAILY, (Reported) ALL OUT OF THIS MED, HAS NOT TAKEN IN ABOUT 1 MONTH Metoprolol Tartrate (Metoprolol Tartrate) 100 Mg Tablet, 100 MG PO DAILY, (Reported) Nystatin (Nystop) 60 Gm Powder, 0 DOSE TOP DAILY Potassium Chloride (Potassium Chloride) 20 Meq Tablet.er, 20 MEQ PO DAILY, (Reported) Torsemide (Torsemide) 10 Mg Tablet, 1 TAB PO DAILY Scheduled PRN Sennosides/Docusate Sodium (Senna Plus Tablet) 1 Each Tablet, 2 TAB PO DAILYPRN PRN for CONSTIPATION Allergies Coded Allergies: codeine (Verified Adverse Reaction, Mild, nausea, 11/11/20) VICENTA FREDERICK DO Nov 16, 2020 15:54
== END 2020-11-16 13:35 | disposition home health service (06) | DRG 194 ==
LOC: M ED 10:40 → EDBD 10:40 → M ED INP 14:12 → ENRESERV 14:57 → M ICU 17:35 → M PCU 11-12 19:10
PROVIDERS: ADMIT Internal Medicine; ATTEND Internal Medicine
DX: I11.0 Hypertensive heart disease with heart failure (principal); N17.9 Acute kidney failure, unspecified; I27.20 Pulmonary hypertension, unspecified; G45.9 Transient cerebral ischemic attack, unspecified; L03.115 Cellulitis of right lower limb; I16.1 Hypertensive emergency; E78.5 Hyperlipidemia, unspecified; E11.9 Type 2 diabetes mellitus without complications; E03.9 Hypothyroidism, unspecified; R32 Unspecified urinary incontinence; Z79.84 Long term (current) use of oral hypoglycemic drugs; Z79.899 Other long term (current) drug therapy; Z88.5 Allergy status to narcotic agent; I50.33 Acute on chronic diastolic (congestive) heart failure

== ENCOUNTER → 2020-12-06 | Outpatient (REF) | payer OTHER ==
[~2020-12-06] MED LIST changes: +AMLO1TAB25 PO; +ASPI81CH8 PO; +ATOR1TAB21 PO; +CEPH500C PO; +FURO20TA2 PO; +HYDR10TAB PO; +LEVO25TA5 PO; +LISI40TA4 PO; +METF10004 PO; +METO100T5 PO; +NYST10006 TOP; +POTA1TAB14 PO; +SENN-52 PO; +SILV50CR; +TORS10TA3 PO
== END ==
LOC: M LAB REF 20:28
PROVIDERS: ATTEND Physician Assistant
DX: N30.01 Acute cystitis with hematuria (principal)

== ENCOUNTER 2020-12-27 21:41 | Inpatient (IN) | payer OTHER ==
[~2020-12-27] VITALS: Ht 154.9 cm; Wt 73.8 kg
[2020-12-27] MEDS: HumaLOG INSULIN (NovoLOG) PER UNIT SC SCH (21:00)
[2020-12-27 22:18] LABS: BASO # 0.1 10^3/uL (0.0-0.2); BASO % 0.6 % (0.0-1.0); EOS # 0.7 10^3/uL (0.0-0.5); EOS % 9.6 % (0.0-3.0); HEMATOCRIT 40.4 % (36.0-47.0); HEMOGLOBIN 12.9 g/dl (12.0-15.5); LYMPH # 1.7 10^3/uL (1.5-5.0); LYMPH % 21.9 % (24.0-44.0); MEAN CORPUSCULAR HEMOGLOBIN 27.6 pg (27.0-33.0); MEAN CORPUSCULAR HGB CONC 31.9 g/dl (32.0-36.5); MEAN CORPUSCULAR VOLUME 86.5 fl (80.0-96.0); MONO # 0.5 10^3/uL (0.0-0.8); MONO % 6.6 % (2.0-8.0); NEUTROPHILS # 4.7 10^3/uL (1.5-8.5); PLATELET COUNT, AUTOMATED 223 10^3/uL (150-450); RED BLOOD COUNT 4.67 10^6/uL (4.00-5.40); WHITE BLOOD COUNT 7.7 10^3/uL (4.0-10.0)
[2020-12-27 22:50] LABS: ALBUMIN 3.3 GM/DL (3.2-5.2); BILIRUBIN,DIRECT 0.2 MG/DL (0.0-0.2); BILIRUBIN,TOTAL 0.4 MG/DL (0.2-1.0); CALCIUM LEVEL 8.1 MG/DL (8.8-10.2); CK-MB VALUE MASS 3.1 NG/ML (<3.6); CREATININE FOR GFR 1.57 MG/DL (0.55-1.30); GLOMERULAR FILTRATION RATE 35.4 (>45); MB/CK RELATIVE INDEX 8.16 (< OR =4); POTASSIUM SERUM 6.2 MEQ/L (3.5-5.1); TOTAL PROTEIN 7.6 GM/DL (6.4-8.2); TROPONIN I 0.03 NG/ML (< 0.10)
[2020-12-27] MEDS ORDERED: HYDR10TAB PO (22:59)
[2020-12-27] MEDS ORDERED: DEXTROSE 50% 50 ML SYRINGE IV STA (23:27)
[2020-12-27] MEDS ORDERED: SODIUM BICARBONATE 8.4% INJ 50 ML SYRINGE IV STA (23:27)
[2020-12-27] MEDS ORDERED: HumuLIN R (REGULAR) INSULIN (NovoLIN R) **100U/ML** PER UNIT IV ONE (23:30)
--- NOTE | 2020-12-28 00:18 | REPVR ---
PROCEDURE INFORMATION: Exam: XR Chest Exam date and time: 12/27/2020 10:23 PM Age: 65 years old Clinical indication: Other: Chest pain TECHNIQUE: Imaging protocol: XR of the chest. Views: 1 view. COMPARISON: MA PORTABLE CHEST X-RAY 11/11/2020 1:46 PM FINDINGS: Lungs: Unremarkable. No consolidation. Pleural spaces: Unremarkable. No pleural effusion. No pneumothorax. Heart/Mediastinum: Unremarkable. No cardiomegaly. Bones/joints: Unremarkable. IMPRESSION: No acute findings. Electronically signed by: Michael Gaitan On 12/28/2020 00:17:19 AM
[2020-12-28] MEDS ORDERED: CALCIUM GLUCONATE 1,000 MG in D5W MINI-BAG PLUS 100 ML IV ONE (00:30)
[2020-12-28] MEDS ORDERED: GLUCOSE 4GM CHEW TABLET PO PRN (00:35)
[2020-12-28] MEDS ORDERED: MAALOX 30 ML SUSP *UDC PO PRN (00:35)
[2020-12-28] MEDS ORDERED: GLUCAGON INJ 1MG VIAL SC PRN (00:35)
[2020-12-28] MEDS ORDERED: DEXTROSE 50% 50 ML SYRINGE IV PRN (00:35)
[2020-12-28] MEDS ORDERED: MOM 30ML SUSPENSION UDC PO PRN (00:35)
[2020-12-28] MEDS ORDERED: TORS10TA3 PO (00:42)
[2020-12-28] MEDS ORDERED: LISI40TA4 PO (00:42)
[2020-12-28] MEDS ORDERED: SENN-23 PO (00:42)
[2020-12-28] MEDS ORDERED: AMLO1TAB25 PO (00:42)
[2020-12-28] MEDS ORDERED: ATOR1TAB21 PO (00:42)
[2020-12-28] MEDS ORDERED: LEVO25TA5 PO (00:42)
[2020-12-28] MEDS ORDERED: ASPI81CH33 PO (00:42)
--- NOTE | 2020-12-28 00:51 | HPEPDOC ---
[facility] Medical History & Physical Date of Admission December 28, 2020 Date of Service: December 28, 2020 Primary Care Physician: JARET MARIE PA-C Attending Physician: LAST BRUNO MD History and Physical TIME OF SERVICE: 110am CHIEF COMPLAINT: passed out HISTORY OF PRESENT ILLNESS: , a 65 yr old female, was recently admitted to our hospital for work-up of a suspected TIA and HTN urgency and during that admission the dose of her Lisinopril was increased and she was s tarted on hydralazine TID; her hydralazine was reduced to once daily according to the pt bc her BP was as low as the 60s. Yesterday evening her son offered to make her a smoothie; when he returned he noticed that his mother had passed out. After a few minutes she regained consciousness; she denied having chest pain, n/v/d/f/c dizziness dyspnea or eating less than usual prior to passing out. REVIEW OF SYSTEMS: 12-point review of systems negative except as listed in HPI PAST MEDICAL/ SURGICAL HISTORY: TIA, hypothyroidism, HFpEF, DM2, Obesity, urinary incontinence, DLP, class 1 obesity and debility (wheel chair bound) SOCIAL HISTORY: doesnt smoke, lives alone but her children stop by to help her with her meds, has a home RN who comes once a week FAMILY HISTORY: cancer ALLERGIES: Please see below. HOME MEDICATIONS: Please see below. PHYSICAL EXAMINATION: Vital Signs Date Time Temp Pulse Resp B/P (MAP) Pulse Ox O2 Delivery O2 Flow Rate FiO2 12/27/20 21:48 97.5 61 20 211/85 Room Air 12/27/20 22:56 96 GENERAL APPEARANCE: well nourished and developed /NAD HEENT: EOMI / MMM&P CARDIOVASCULAR: RRR/NMRG LUNGS: CTAB on RA ABDOMEN: contour obese /soft & NT MUSCULOSKELETAL: NCAT / LINDSEY x4 INTEGUMENT: not flushed, diaphoretic or pale NEUROLOGICAL: CN 2-12 grossly intact / speech not dysarthric PSYCHIATRIC: A&O x 3/ able to understand and follow all commands LABORATORY DATA: Anion Gap 3L, Glomerular Filtration Rate 35.4L, Calcium Level 8.1L, Magnesium Level 2.0, Total Bilirubin 0.4, Direct Bilirubin 0.2, Aspartate Amino Transf (AST/SGOT) 50H, Alanine Aminotransferase (ALT/SGPT) 60, Alkaline Phosphatase 396H, Total Creatine Kinase 38, Creatine Kinase MB 3.1, Creatine Kinase MB Relative Index 8.16H, Troponin I 0.03, Total Protein 7.6, Albumin 3.3, Albumi n/Globulin Ratio 0.8L, Lipase 379 12/27/20 22:03: Immature Granulocyte % (Auto) 0.3, Neutrophils (%) (Auto) 61.0, Lymphocytes (%) (Auto) 21.9L, Monocytes (%) (Auto) 6.6, Eosinophils (%) (Auto) 9.6H, Basophils (%) (Auto) 0.6, Neutrophils # (Auto) 4.7, Lymphocytes # (Auto) 1.7, Monocytes # (Auto) 0.5, Eosinophils # (Auto) 0.7H, Basophils # (Auto) 0.1, Nucleated Red Blood Cells % (auto) 0.0 IMAGING: Chest xray IMPRESSION: No acute findings. // CT head IMPRESSION: Mild cerebral volume loss and chronic white matter changes. No acute intracranial abnormality. MICROBIOLOGY: respiratory panel neg ASSESSMENT: Ms. Cota is a 65 yr old F w HFpEF, DM2, Obesity, urinary incontinence, DLP and debility who is admitted for evaluation of syncope, HTN urgency, hyperkalemia and NELY. PLAN: 1 Syncope Possibly due to HTN encephalopathy or TIA Plan: Telemetry / f/u orthostats, ammonia, VBG to check PCO2 / they day time team may consider MRI brain and CVA work up 2 Hypertensive Emergency Her SBP was 211 in the ER Suspect that the acute elevation in her BP is the cause of the syncopal episode /HTN encephalopathy and is also the cause of the acute rise in creatinine Plan: c/w Amlodipine & Metoprolol / switch Hydralazine from daily to TID / ACEI and diuretic on hold bc of NELY 3 Hyperkalemia 2/2 NELY No peaked T waves on EKG Plan: received calcium gluconate, sodium bicarb and dextrose w insulin in the ER / f/u repeat K / treat NELY 4 NELY Likely due to accelerated HTN Plan: f/u ulytes /hold Lasix and Lisinopril / treat uncontrolled HTN as above / f/u renal US / control BP & trend Cr 5 Chronic HFpEF Clinically compensated & BNP lower than previous visit Plan: f/u Is and Os and weights / low salt diet / c/w BB / diuretic on hold bc of NELY 6 NIDDM2 Plan: diabetic diet / f/u accuchecks / /hypoglycemia protocol / sliding scale insulin / hold oral anti-glycemic / f/u A1C (target A1C is about 8.5% bc she frail ) / f/u UA if she has proteinuria & her GFR recovers above 45 the day time team may consider adding canagliflozin which has been shown to reduce the risk of progression to ESKD, increasing of serum Cr, CV and hospitalization for heart failure 6 Transaminitis Possibly due to fatty liver Plan: f/u liver US and Hepatitis screen 7 DLP Plan: Atorvastatin 8 Class 1 Obesity with co-existing DM Complicates care Plan: the patient can f/u w her PCP for sleep apnea screening & a polysilicon preparation worker consult DVT px w Heparin Dispo: home after at least 2 midnights stay Home Medications Scheduled Amlodipine Besylate (Amlodipine Besylate) 10 Mg Tablet, 10 MG PO DAILY Aspirin (Aspirin) 81 Mg Tab.chew, 81 MG PO DAILY Atorvastatin Calcium (Atorvastatin Calcium) 20 Mg Tablet, 20 MG PO DAILY Hydralazine HCl (Hydralazine HCl) 10 Mg Tablet, 10 MG PO DAILY Levothyroxine Sodium (Levothyroxine Sodium) 25 Mcg Tablet, 25 MCG PO DAILY Metformin HCl (Metformin HCl) 1,000 Mg Tablet, 1,000 MG PO DAILY ALL OUT OF THIS MED, HAS NOT TAKEN IN ABOUT 1 MONTH Metoprolol Tartrate (Metoprolol Tartrate) 25 Mg Tablet, 25 MG PO DAILY Potassium Chloride (Potassium Chloride) 20 Meq Tablet.er, 20 MEQ PO DAILY Sennosides/Docusate Sodium (Senna-S Tablet) 1 Each Tablet, 2 TAB PO DAILY Allergies Coded Allergies: codeine (Verified Adverse Reaction, Mild, nausea, 11/11/20) A-FIB/CHADSVASC A-FIB History Current/History of A-Fib/PAF?: No Current PO Anticoag Therapy: No LAST BRUNO MD December 28, 2020 00:51
--- NOTE | 2020-12-28 01:20 | REPVR ---
PROCEDURE INFORMATION: Exam: CT Head Without Contrast Exam date and time: 12/28/2020 12:05 AM Age: 65 years old Clinical indication: Dizziness; Additional info: Syncope TECHNIQUE: Imaging protocol: Computed tomography of the head without contrast. Radiation optimization: All CT scans at this facility use at least one of these dose optimization techniques: automated exposure control; mA and/or kV adjustment per patient size (includes targeted exams where dose is matched to clinical indication); or iterative reconstruction. COMPARISON: CT Head without contrast 11/11/2020 1:14 PM FINDINGS: Brain: There is mild cerebral volume loss. Changes of chronic white matter microvascular disease are present. No signs of a recent infarction or hemorrhage. Cerebral ventricles: No ventriculomegaly. Bones/joints: Unremarkable. No acute fracture. Paranasal sinuses: Visualized sinuses are unremarkable. No fluid levels. Mastoid air cells: Visualized mastoid air cells are well aerated. Soft tissues: Unremarkable. IMPRESSION: Mild cerebral volume loss and chronic white matter changes. No acute intracranial abnormality. Electronically signed by: Michael Gaitan On 12/28/2020 01:20:32 AM
--- NOTE | 2020-12-28 02:07 | REPVR ---
PROCEDURE INFORMATION: Exam: US Abdomen Complete Exam date and time: 12/28/2020 1:11 AM Age: 65 years old Clinical indication: Other: Refugio, transaminitis; Additional info: Refugio and transaminitis TECHNIQUE: Imaging protocol: Real-time ultrasound of the abdomen with image documentation. COMPARISON: OK Abdomen,Flat Plate KUB 07/09/2020 4:00 PM FINDINGS: Heart: Trace pericardial effusion. Liver: Normal. No mass. Gallbladder: Calculi and sludge in the gallbladder wall measuring up to 9 mm. No gallbladder wall thickening. Trace pericholecystic fluid. Common bile duct: Normal. No stones. No dilation. Pancreas: Visualized pancreas is unremarkable. Right kidney: 1.3 cm cyst in the right kidney. Right kidney is otherwise unremarkable. No hydronephrosis. Left kidney: Normal. No mass. No hydronephrosis. Spleen: Normal. No splenomegaly. Aorta: Normal. No aneurysm. Inferior vena cava: Normal. IMPRESSION: 1. Cholelithiasis and trace pericholecystic fluid. No gallbladder wall thickening or biliary duct dilation to suggest acute cholecystitis. 2. Trace pericardial effusion. Electronically signed by: Michael Gaitan On 12/28/2020 02:07:09 AM
[2020-12-28 02:09] LABS: VENOUS BASE EXCESS -0.6 (-2.0-2.0); VENOUS HCO3 26.1 MEQ/L (23.0-27.0); VENOUS O2 SATURATION 80.2 % (60.0-80.0); VENOUS PARTIAL PRESSURE CO2 51.6 mmHg (38.0-50.0); VENOUS PARTIAL PRESSURE O2 46.1 mmHg (30.0-50.0); VENOUS PH 7.322 UNITS (7.330-7.430); VENOUS STANDARD HCO3 23.6 MEQ/L; VENOUS TOTAL CO2 27.7 MEQ/L (24.0-28.0)
[2020-12-28 02:11] LABS: RSV AMPLIFICATION NEGATIVE (NEGATIVE)
[2020-12-28 02:39] LABS: NT-PRO BNP 3501 PG/ML (<125); POTASSIUM SERUM 5.4 MEQ/L (3.5-5.1); URIC ACID 7.3 MG/DL (2.6-6.0)
[2020-12-28 04:20] LABS: HEMATOCRIT 37.1 % (36.0-47.0); HEMOGLOBIN 11.7 g/dl (12.0-15.5); MEAN CORPUSCULAR HEMOGLOBIN 27.6 pg (27.0-33.0); MEAN CORPUSCULAR HGB CONC 31.5 g/dl (32.0-36.5); MEAN CORPUSCULAR VOLUME 87.5 fl (80.0-96.0); PLATELET COUNT, AUTOMATED 226 10^3/uL (150-450); RED BLOOD COUNT 4.24 10^6/uL (4.00-5.40); WHITE BLOOD COUNT 9.3 10^3/uL (4.0-10.0)
[2020-12-28 04:24] LABS: INR 0.95; PROTHROMBIN TIME 12.9 SECONDS (12.5-14.3)
[2020-12-28 04:25] LABS: PARTIAL THROMBOPLASTIN TIME 29.9 SECONDS (24.2-38.5)
[2020-12-28 04:40] LABS: ALBUMIN 2.9 GM/DL (3.2-5.2); ALT/SGPT 53 U/L (12-78); BILIRUBIN,TOTAL 0.4 MG/DL (0.2-1.0); BLOOD UREA NITROGEN 67 MG/DL (7-18); CALCIUM LEVEL 8.7 MG/DL (8.8-10.2); CARBON DIOXIDE LEVEL 26 MEQ/L (21-32); CHLORIDE LEVEL 112 MEQ/L (98-107); CREATININE FOR GFR 1.58 MG/DL (0.55-1.30); GLOMERULAR FILTRATION RATE 35.2 (>45); GLUCOSE, FASTING 182 MG/DL (70-100); SODIUM LEVEL 142 MEQ/L (136-145); TOTAL PROTEIN 7.1 GM/DL (6.4-8.2)
[2020-12-28 04:50] VITALS: BP 148/67
[2020-12-28 04:55] LABS: HEMOGLOBIN A1c 6.6 %
--- NOTE | 2020-12-28 05:36 | ECGEPIP ---
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
[2020-12-28] MEDS: LEVOTHYROXINE 25MCG TABLET (0.025MG) PO SCH (05:43)
[2020-12-28] MEDS: HEPARIN SOD (PORCINE) 5000UNITS/ML 1ML VIAL/SYRINGE SC SCH ×3 (05:43→21:14)
[2020-12-28] MEDS: HumaLOG INSULIN (NovoLOG) PER UNIT SC SCH ×4 (07:30→20:23)
[2020-12-28 08:02] VITALS: BP 190/80
[2020-12-28] MEDS: **hydrALAZINE** 10 MG TAB PO SCH ×3 (08:34→14:55)
[2020-12-28] MEDS ORDERED: METOPROLOL TARTRATE 100 MG TAB PO SCH (09:00)
[2020-12-28] MEDS ORDERED: TORSEMIDE 10 MG TABLET PO SCH (09:00)
[2020-12-28] MEDS ORDERED: METOPROLOL TART 25 MG TABLET PO SCH (09:00)
[2020-12-28] MEDS ORDERED: lisinopriL 40 MG TAB PO SCH (09:00)
[2020-12-28] MEDS ORDERED: POTASSIUM CHLORIDE 10 MEQ SR TABLET PO SCH (09:00)
--- NOTE | 2020-12-28 09:26 | REP ---
INDICATION: HTN, uncontrolled, NELY. COMPARISON: Comparison is made with the sonogram performed 7-1/2 hours earlier on this date.. TECHNIQUE: Urinary tract sonography. FINDINGS: Scanning at the level of the urinary bladder shows no abnormality. Renal cortical echogenicity pattern is normal bilaterally and contours are smooth. There is no evidence of hydronephrosis on either side. There is a 1.0 x 1.0 x 0.8 cm slightly septated cyst in the upper pole region of the right kidney. There is a tiny trace of fluid adjacent to the liver in Morison's pouch. No other cyst or mass is seen on either side. There is no visible ascites.. The right kidney measures 10.0 x 5.0 x 4.7 cm. Left renal dimensions are 9.1 x 4.9 x 5.2 cm. IMPRESSION: Normal urinary tract sonography. <Electronically signed by Clifford Irby > 12/28/20 [id number]
--- NOTE | 2020-12-28 09:29 | REP ---
INDICATION: syncope COMPARISON: Comparison carotid sonography November 12, 2020.. TECHNIQUE: Real-time ultrasound evaluation and duplex Doppler interrogation of the extracranial carotid vasculature is performed. FINDINGS: Waste. Right carotid: The right common carotid artery shows diffuse intimal thickening but is otherwise unremarkable. There ismild mixed plaquing in the right carotid bulb and proximal ICA on two-dimensional scanning. Color flow and spectral Doppler interrogation are unremarkable on the right. Velocity chart right carotid: Right CCA PSV: 45.5 cm/S Right ICA PSV: 68.7 cm/S Right ICA EDV: 19.6 cm/S Right ECA PSV: 66 cm/S Right ICA/CCA ratio: 1.5 Left carotid: The left common carotid artery shows diffuse intimal thickening but is otherwise unremarkable. There is mild mixed plaquing in the left carotid bulb and proximal ICA on two-dimensional scanning. Color flow and spectral Doppler interrogation are unremarkable on the left. Velocity chart left carotid: Left CCA PSV: 57.6 cm/S Left ICA PSV: 75.2 cm/S Left ICA EDV: 19.5 cm/S Left ECA PSV: 68.0 cm/S Left ICA/CCA ratio: 1.3 IMPRESSION: Less than 50% category narrowing in the right internal carotid artery by Doppler velocity criteria. ICA carotid velocities have not changed in the short interval since the November 12, 2020 study. Less than 50% category narrowing in the left ICA by Doppler velocity criteria. ICA carotid velocities have not changed in the short interval since the November 12, 2020 prior study. <Electronically signed by Clifford Irby > 12/28/20 [id number]
[2020-12-28] MEDS: SENOKOT S TAB PO SCH ×2 (09:48→09:53)
[2020-12-28] MEDS: ATORVASTATIN 20 MG TAB PO SCH (09:48)
[2020-12-28] MEDS: ASPIRIN 81 MG CHEW TABLET PO SCH (09:49)
[2020-12-28 10:50] LABS: APPEARANCE, URINE CLEAR (CLEAR); BACTERIA, URINE AUTO 1+ (NEGATIVE); BILIRUBIN, URINE AUTO NEGATIVE (NEGATIVE); BLOOD, URINE BLOOD 1+ (NEGATIVE); COLOR, URINE YELLOW (YELLOW); GLUCOSE, URINE (UA) AUTO 1+ mg/dL (NEGATIVE); KETONE, URINE AUTO NEGATIVE (NEGATIVE); LEUKOCYTE ESTERASE, URINE AUTO NEGATIVE (NEGATIVE); NITRITE, URINE AUTO NEGATIVE (NEGATIVE); PROTEIN, URINE AUTO 2+ mg/dL (NEGATIVE); RBC, URINE AUTO 8 /HPF (0-3); SPECIFIC GRAVITY URINE AUTO 1.014 (1.002-1.035); SQUAMOUS EPITHELIAL CELL UR AU 1 /HPF (0-6); UROBILINOGEN, URINE AUTO 0.2 mg/dL (0.0-2.0); WBC, URINE AUTO 2 /HPF (0-3)
[2020-12-28 11:14] LABS: CREATININE,RANDOM URINE 73.7 MG/DL
[2020-12-28 12:00] VITALS: BP 158/78
[2020-12-28] MEDS: NYSTATIN 100,000 UNITS/GM TOPICAL PWD 15 GM TOP SCH ×2 (12:54→20:47)
[2020-12-28] MEDS ORDERED: hydrALAZINE 20MG/ML 1ML VIAL (J0360 PER 20MG) IV PRN (14:50)
--- NOTE | 2020-12-28 15:08 | IPNPDOC ---
Date Seen The patient was seen on 12/28/20. Progress Note SUBJECTIVE: K slightly elevated still at 5.4, stopped K supplement. Cr still elevated at 1.58 (BL wnl). Carotid US ordered. Patient denies chest pain, increased SOB, n/v/d. OBJECTIVE: PHYSICAL EXAMINATION: VS: Please see below GENERAL APPEARANCE: well nourished and developed /NAD, AAOx 3 HEENT: EOMI / MMM&P CARDIOVASCULAR: RRR/NMRG, + 1 pitting edema in b/l lower ext LUNGS: CTAB on RA ABDOMEN: contour obese /soft & NT MUSCULOSKELETAL: NCAT / LINDSEY x4 INTEGUMENT: groin and abdominal folds reddened, tender in some places. RLE rash, does not look herpetic and patient states is chronic, at times tender to touch NEUROLOGICAL: CN 2-12 grossly intact / speech not dysarthric PSYCHIATRIC: A&O x 3/ able to understand and follow all commands LABORATORY DATA: Please see below IMAGING: Renal US: Normal urinary tract sonography. Vascular US: Less than 50% category narrowing in the right internal carotid artery by Doppler velocity criteria. ICA carotid velocities have not changed in the short interval since the November 12, 2020 study. Less than 50% category narrowing in the left ICA by Doppler velocity criteria. ICA carotid velocities have not changed in the short interval since the November 12, 2020 prior study. US abdomen: 1. Cholelithiasis and trace pericholecystic fluid. No gallbladder wall thickening or biliary duct dilation to suggest acute cholecystitis. 2. Trace pericardial effusion. Chest xray: No acute findings. CT head: Mild cerebral volume loss and chronic white matter changes. No acute intracranial abnormality. Echocardiogram 11/11/20: Sinus bradycardia without intraventricular conduction disturbance. M-mode and 2-dimensional echocardiography was performed with pulse, continuous wave, color flow, and tissue Doppler studies. Moderate symmetrical left ventricle hypertrophy with somewhat speckled appearance suggestive of amyloidosis and global mild hypokinesis. Mildly dilated left atrium with Doppler evidence of grade 1 LV diastolic dysfunction and significantly elevated mean left atrial pressure. Mildly dilated right ventricle with a slight right ventricular free wall hypokinesis and mild pulmonary hypertension. Right atrium upper limits of normal with slightly dilated IVC and slightly reduced respiratory collapse suggestive of at least central venous pressure upper limits of normal to slightly increased. Normal aortic root diameters. Mild aortic valvular sclerosis without functional abnormality. Moderate mitral annular calcification with some thickening of the mitral leaflets with low flow appearance of leaflet motion but no obvious posterior systolic buckling. No inflow tract obstruction but at least moderate insufficiency. Normal appearing tricuspid valve with at least mild insufficiency. Unable to detect any intracardiac mass. Small posterior pericardial effusion fairly localized to the AV groove measuring0.8 cm at that point but no cardiac chamber compression. MICROBIOLOGY: Respiratory panel neg ASSESSMENT: Pt is 65 yr old F w HFpEF, DM2, Obesity, urinary incontinence, DLP and debility who is admitted for evaluation of syncope, HTN urgency, hyperkalemia and NELY. PLAN: Syncope poss 2/2 to HTN encephalopathy vs. TIA vs. vasovagal episode -AAOx 3 today on exam -no episodes since admission -CT head, carotid US, most recent echo from 11/2020 above -Ammonia wnl -No neurological changes -F/u orthostatics, telemetry -If neuro status changes, consider MRI on 12/30/20 HTN Emergency -BP ranged from 130-180's -Restarted amlodipine and hydralazine -Will watch HR and increase BB dose as tolerates -Holding ACEi and torsemide due to NELY -Can add hydralazine PRN IV if needed. Hyperkalemia 2/2 NELY -Cr 1.58, K still slightly elevated 5.4 -No peaked T waves on EKG -Holding ACEi -received calcium gluconate, sodium bicarb and dextrose w insulin in the ER for K 6.2 -F/u repeat labs NELY likey due to accelerated HTN, home medication (lasix, ACEi) -BL Cr wnl -Renal US wnl -Holding off on IVFs currently, if Cr worsens or NELY, start gentle IVFs. Chronic HFpEF, not decompensated or in exacerbation -BNP 3501, 11/14/20 BNP 15K so not worsened -Holding ACEi, diuretics -On lower dose BB but increase as tolerated -Restarted CCB today -C/w Is&Os and weights / low salt diet , 2 gm sodium diet Yeast infection of abd pain/groin likely 2/2 to urinary incontinence -Nystatin BID NIDDM2 -BS 182 -Holding antihyperglycemic, FS and ISS AC/HS -CC diet Transaminitis -Liver US wnl -F/u hep screen -CMP DLP -Atorvastatin DVT px - Heparin DISPOSITION: Lives with son at home with manager in home twice weekly. Will TB with PFS to see if patient will need more help at home- has yeast infection in groin likely 2/2 to urinary incontinence, sitting in urine perhaps? Full Code. VS, I&O, 24H, Fishbone Vital Signs/I&O Vital Signs Date Time Temp Pulse Resp B/P (MAP) Pulse Ox O2 Delivery O2 Flow Rate FiO2 12/28/20 14:00 135/65 12/28/20 12:00 97.0 58 17 97 Room Air I&O- Last 24 Hours up to 6 AM 12/28/20 06:00 Intake Total 110 ml Balance 110 ml Laboratory Data 24H LABS Laboratory Tests 2 12/27/20 22:02: Anion Gap 3L, Glomerular Filtration Rate 35.4L, Calcium Level 8.1L, Magnesium Level 2.0, Total Bilirubin 0.4, Direct Bilirubin 0.2, Aspartate Amino Transf (AST/SGOT) 50H, Alanine Aminotransferase (ALT/SGPT) 60, Alkaline Phosphatase 396H, Total Creatine Kinase 38, Creatine Kinase MB 3.1, Creatine Kinase MB Relative Index 8.16H, Troponin I 0.03, Total Protein 7.6, Albumin 3.3, Albumin/Globulin Ratio 0.8L, Lipase 379 12/27/20 22:03: Immature Granulocyte % (Auto) 0.3, Neutrophils (%) (Auto) 61.0, Lymphocytes (%) (Auto) 21.9L, Monocytes (%) (Auto) 6.6, Eosinophils (%) (Auto) 9.6H, Basophils (%) (Auto) 0.6, Neutrophils # (Auto) 4.7, Lymphocytes # (Auto) 1.7, Monocytes # (Auto) 0.5, Eosinophils # (Auto) 0.7H, Basophils # (Auto) 0.1, Nucleated Red Blood Cells % (auto) 0.0 12/28/20 01:05: Coronavirus (COVID-19)(PCR) NEGATIVE, Influenza Type A (RT-PCR) NEGATIVE, Influenza Type B (RT-PCR) NEGATIVE, Respiratory Syncytial Virus (PCR) NEGATIVE 12/28/20 01:53: Nucleated Red Blood Cells % (auto) 0.0, Prothrombin Time 12.9, Prothromb Time International Ratio 0.95, Activated Partial Thromboplast Time 29.9, Estimated Mean Plasma Glucose 143H, Hemoglobin A1c 6.6 12/28/20 01:59: Blood Gas Bicarbonate Standard 23.6, Venous Blood pH 7.322L, Venous Blood Partial Pressure CO2 51.6H, Venous Blood Partial Pressure O2 46.1, Venous Blood Total Carbon Dioxide 27.7, Venous Blood HCO3 26.1, Venous Blood Oxygen Saturation 80.2H, Venous Blood Base Excess -0.6, Anion Gap 4L, Glomerular Filtration Rate 35.2L, Uric Acid 7.3H, Calcium Level 8.7L, Total Bilirubin 0.4, Aspartate Amino Transf (AST/SGOT) 45H, Alanine Aminotransferase (ALT/SGPT) 53, Alkaline Phosphatase 355H, Ammonia 31, GW-W[place]-W-Type Natriuretic Peptide 3501H, Total Protein 7.1, Albumin 2.9L, Albumin/Globulin Ratio 0.7L 12/28/20 04:11: Bedside Glucose (Misc Panel) 126H 12/28/20 10:32: Urine Color YELLOW, Urine Appearance CLEAR, Urine pH 5.0, Urine Specific [place] 1.014, Urine Protein 2+H, Urine Glucose (Auto)(UA) 1+H, Urine Ketones (Auto) NEG ATIVE, Urine Blood 1+H, Urine Nitrite NEGATIVE, Urine Bilirubin NEGATIVE, Urine Urobilinogen 0.2, Urine Leukocyte Esterase (Auto) NEGATIVE, Urine WBC (Auto) 2, Urine RBC (Auto) 8H, Urine Hyaline Casts (Auto) 8, Urine Bacteria (Auto) 1+H, Urine Squamous Epithelial Cells 1, Urine Sperm (Auto) , Urine Osmolality 521, Urine Random Creatinine 73.7, Urine Random Sodium 51, Urine Random Urea Nitrogen 838 12/28/20 11:42: Bedside Glucose (Misc Panel) 233H CBC/BMP Laboratory Tests 12/27/20 22:02 12/27/20 22:03 12/28/20 01:53 12/28/20 01:59 Denisse Moore MD December 28, 2020 15:08
[2020-12-28 20:00] VITALS: BP 164/67
[2020-12-28] MEDS: ACETAMINOPHEN TAB 650MG DOSE (2X325MG) PO PRN (21:14)
[2020-12-29] VITALS (9 sets, daily range): BP systolic 105–188; BP diastolic 55–77
[2020-12-29 03:57] LABS: HEMOGLOBIN 11.5 g/dl (12.0-15.5); MEAN CORPUSCULAR HGB CONC 32.9 g/dl (32.0-36.5); MEAN CORPUSCULAR VOLUME 85.4 fl (80.0-96.0); PLATELET COUNT, AUTOMATED 204 10^3/uL (150-450); WHITE BLOOD COUNT 6.5 10^3/uL (4.0-10.0)
[2020-12-29 04:24] LABS: ALBUMIN 2.8 GM/DL (3.2-5.2); BILIRUBIN,TOTAL 0.4 MG/DL (0.2-1.0); CALCIUM LEVEL 8.7 MG/DL (8.8-10.2); CREATININE FOR GFR 1.34 MG/DL (0.55-1.30); GLOMERULAR FILTRATION RATE 42.5 (>45); TOTAL PROTEIN 7.2 GM/DL (6.4-8.2)
[2020-12-29] MEDS: HEPARIN SOD (PORCINE) 5000UNITS/ML 1ML VIAL/SYRINGE SC SCH ×3 (06:01→21:33)
[2020-12-29] MEDS: LEVOTHYROXINE 25MCG TABLET (0.025MG) PO SCH (06:02)
[2020-12-29] MEDS: HumaLOG INSULIN (NovoLOG) PER UNIT SC SCH ×4 (07:11→21:00)
[2020-12-29] MEDS ORDERED: METOPROLOL TART 50 MG TAB PO SCH (09:00)
[2020-12-29] MEDS: **hydrALAZINE** 10 MG TAB PO SCH (09:00)
[2020-12-29] MEDS: ASPIRIN 81 MG CHEW TABLET PO SCH (09:47)
[2020-12-29] MEDS: SENOKOT S TAB PO SCH (09:47)
[2020-12-29] MEDS: ATORVASTATIN 20 MG TAB PO SCH (09:48)
[2020-12-29] MEDS: NYSTATIN 100,000 UNITS/GM TOPICAL PWD 15 GM TOP SCH ×2 (09:48→21:33)
[2020-12-29] MEDS ORDERED: ONDANSETRON 4MG/2ML VIAL IV PRN (11:55)
--- NOTE | 2020-12-29 12:12 | IPNPDOC ---
Date Seen The patient was seen on 12/29/20. Progress Note SUBJECTIVE: Evaluated first thing this AM. No acute events overnight and patient had no new complaints. Notified later at 11:45 AM of patient having increased "tremoring" and feeling "shaky", states to get this sometimes at home. + nausea. BS, MS wnl. No new neuro deficits, BP systolic 170's. Had held AM BP meds but will give one now. Denies chest pain, diaphoresis, incr SOB, fevers, chills. OBJECTIVE: PHYSICAL EXAMINATION (prior to episode above): VS: Please see below GENERAL APPEARANCE: NAD, AAOx 3 HEENT: EOMI / MMM&P CARDIOVASCULAR: RRR/NMRG, + 1 pitting edema in b/l lower ext LUNGS: CTAB on RA ABDOMEN: contour obese /soft & NT MUSCULOSKELETAL: NCAT / LINDSEY x4 INTEGUMENT: groin and abdominal folds reddened, tender in some places. RLE rash, does not look herpetic and patient states is chronic, at times tender to touch NEUROLOGICAL: left eyelid closed- chronic. CN 2-12 grossly intact / speech not dysarthric PSYCHIATRIC: A&O x 3/ able to understand and follow all commands LABORATORY DATA: F/u troponin Please see below IMAGING: F/u STAT ECG Renal US: Normal urinary tract sonography. Vascular US: Less than 50% category narrowing in the right internal carotid artery by Doppler velocity criteria. ICA carotid velocities have not changed in the short interval since the November 12, 2020 study. Less than 50% category narrowing in the left ICA by Doppler velocity criteria. ICA carotid velocities have not changed in the short interval since the November 12, 2020 prior study. US abdomen: 1. Cholelithiasis and trace pericholecystic fluid. No gallbladder wall thicken ing or biliary duct dilation to suggest acute cholecystitis. 2. Trace pericardial effusion. Chest xray: No acute findings. CT head: Mild cerebral volume loss and chronic white matter changes. No acute intracranial abnormality. Echocardiogram 11/11/20: Sinus bradycardia without intraventricular conduction disturbance. M-mode and 2-dimensional echocardiography was performed with pulse, continuous wave, color flow, and tissue Doppler studies. Moderate symmetrical left ventricle hypertrophy with somewhat speckled appearance suggestive of amyloidosis and global mild hypokinesis. Mildly dilated left atrium with Doppler evidence of grade 1 LV diastolic dysfunction and significantly elevated mean left atrial pressure. Mildly dilated right ventricle with a slight right ventricular free wall hypokinesis and mild pulmonary hypertension. Right atrium upper limits of normal with slightly dilated IVC and slightly reduced respiratory collapse suggestive of at least central venous pressure upper limits of normal to slightly increased. Normal aortic root diameters. Mild aortic valvular sclerosis without functional abnormality. Moderate mitral annular calcification with some thickening of the mitral leaflets with low flow appearance of leaflet motion but no obvious posterior systolic buckling. No inflow tract obstruction but at least moderate insufficiency. Normal appearing tricuspid valve with at least mild insufficiency. Unable to detect any intracardiac mass. Small posterior pericardial effusion fairly localized to the AV groove measuring0.8 cm at that point but no cardiac chamber compression. MICROBIOLOGY: Respiratory panel neg ASSESSMENT: Pt is 65 yr old F w HFpEF, DM2, Obesity, urinary incontinence, DLP and debility who is admitted for evaluation of syncope, HTN urgency, hyperkalemia and NELY. PLAN: Increased tremoring and "shakiness", anxiety? -Denies chills, chest pain, new med initiation, BS is wnl and patient has been eating/drinking well -Feeling "tingling in hands" bilaterally, "lump" in throat, neck tightness -States she is anxious -NSR on tele -F/u cycling trop, STAT ECG, tele, STAT CT head -If CT head neg and trop neg, consider 1x dose low dose IV ativan to see if this helps HTN, uncontrolled. Resolved emergency -BP > 180 this AM, given 10 mg IV hydralazine -C/w home amlodipine,hydralazine, BB -Holding ACEi and torsemide due to NELY -Hydralazine PRN PO if needed. Syncope poss 2/2 to HTN encephalopathy vs. TIA vs. vasovagal episode -AAOx 3 again today on exam -no episodes since admission -CT head, carotid US, most recent echo from 11/2020 above -Ammonia wnl -No neurological changes -F/u orthostatics if able to be completed, telemetry -If neuro status changes, consider MRI on 12/30/20 Hyperkalemia 2/2 NELY -K 5.0 and showing improvement in Cr as well -No peaked T waves on EKG -Holding ACEi -received calcium gluconate, sodium bicarb and dextrose w insulin in the ER for K 6.2 -F/u repeat labs NELY likey due to accelerated HTN, home medication (lasix, ACEi) -BL Cr wnl, today further improved to 1.34 from 1.58 -Renal US wnl -Holding off on IVFs currently, if Cr worsens or NELY, start gentle IVFs. Chronic HFpEF, not decompensated or in exacerbation -BNP 3501, 11/14/20 BNP 15K so not worsened -Holding ACEi, diuretics -C/w CCB, BB, Is&Os and weights / low salt diet , 2 gm sodium diet Yeast infection of abd pain/groin likely 2/2 to urinary incontinence -Nystatin BID NIDDM2 -BS 182 -Holding antihyperglycemic, FS and ISS AC/HS -CC diet Transaminitis -Liver US wnl -F/u hep screen -CMP DLP -Atorvastatin DVT px - Heparin DISPOSITION: Lives with son at home with home sales service professional twice weekly. Will TB with PFS to see if patient will need more help at home. Full Code.Had downgraded to med/surg floor with tele; however, keep on PCU until symptoms above improved. VS, I&O, 24H, Fishbone Vital Signs/I&O Vital Signs Date Time Temp Pulse Resp B/P (MAP) Pulse Ox O2 Delivery O2 Flow Rate FiO2 12/29/20 08:59 77 105/55 (72) 12/29/20 08:00 96.9 17 94 Room Air I&O- Last 24 Hours up to 6 AM 12/29/20 06:00 Intake Total 1800 ml Output Total 1500 ml Balance 300 ml Laboratory Data 24H LABS Laboratory Tests 2 12/28/20 16:53: Bedside Glucose (Misc Panel) 111 12/28/20 19:32: Bedside Glucose (Misc Panel) 154H 12/29/20 03:38: Nucleated Red Blood Cells % (auto) 0.0, Anion Gap 6L, Glomerular Filtration Rate 42.5L, Calcium Level 8.7L, Total Bilirubin 0.4, Aspartate Amino Transf (AST/SGOT) 37, Alanine Aminotransferase (ALT/SGPT) 44, Alkaline Phosphatase 318H, Total Protein 7.2, Albumin 2.8L, Albumin/Globulin Ratio 0.6L 12/29/20 11:46: Bedside Glucose (Misc Panel) 150H CBC/BMP Laboratory Tests 12/29/20 03:38 Denisse Moore MD December 29, 2020 12:12
--- NOTE | 2020-12-29 13:10 | REP ---
INDICATION: r/o neurological event. COMPARISON: Comparison CT studies are from 28 Dec 2020 and 11 November 2020.. TECHNIQUE: Helical scanning is acquired. 5 mm axial images were reformatted. Coronal MPR images were generated. FINDINGS: Digital preliminary asbestos shingle inspector radiograph is unremarkable. Bone window settings demonstrate intact bony calvarium. Visualized paranasal sinuses are clear. No intraorbital abnormality is seen. There is minimal vascular calcification in the distal internal carotid arteries. On soft tissue window settings, there is mild generalized volume loss. There is an old lacunar infarct in the basal ganglia on the right and another in the basal ganglia on the left unchanged from both prior studies. No acute infarction is seen. Mild small vessel changes are noted in the periventricular white matter. There is no evidence of intracranial hemorrhage. No acute infarction, mass, extra-axial fluid collection, or midline shift is seen. IMPRESSION: Minimal vascular calcification and generalized volume loss. Tiny old lacunar infarcts in the basal ganglia bilaterally. Unchanged from prior study. No acute intracranial abnormality.. <Electronically signed by Clifford Irby > 12/29/20 [id number]
[2020-12-29] MEDS: ACETAMINOPHEN TAB 650MG DOSE (2X325MG) PO PRN (13:41)
--- NOTE | 2020-12-29 21:01 | ECGEPIP ---
[facility] Test Date: 2020-12-29 Pat Name: LIDIA NUÑEZ Department: Room: [place] [address] Gender: Female Biomedical Manager: constantino : 1955 Requested By: Denisse Patel Order Number: [id number] Reading MD: Tay Renee Measurements Intervals [place] Rate: 70 P: 53 FL: 178 QRS: 88 QRSD: 106 T: -41 QT: 424 QTc: 457 Interpretive Statements Normal sinus rhythm Minimal voltage criteria for LVH, may be normal variant ( Forest product ) ST & T wave abnormality, consider inferior ischemia Lateral ST-T wave morphology change and increased artifact from tracing done Electronically Signed on 12-29-2020 21:00:51 EDT by Tay Renee
[2020-12-30] VITALS (7 sets, daily range): BP systolic 125–157; BP diastolic 56–74
[2020-12-30 05:50] LABS: HEMATOCRIT 34.6 % (36.0-47.0); HEMOGLOBIN 11.2 g/dl (12.0-15.5); MEAN CORPUSCULAR HEMOGLOBIN 28.1 pg (27.0-33.0); MEAN CORPUSCULAR HGB CONC 32.4 g/dl (32.0-36.5); MEAN CORPUSCULAR VOLUME 86.9 fl (80.0-96.0); PLATELET COUNT, AUTOMATED 218 10^3/uL (150-450); RED BLOOD COUNT 3.98 10^6/uL (4.00-5.40); WHITE BLOOD COUNT 6.6 10^3/uL (4.0-10.0)
[2020-12-30 06:15] LABS: CALCIUM LEVEL 8.7 MG/DL (8.8-10.2); CREATININE FOR GFR 1.37 MG/DL (0.55-1.30); GLOMERULAR FILTRATION RATE 41.5 (>45)
[2020-12-30 06:16] LABS: BILIRUBIN,TOTAL 0.4 MG/DL (0.2-1.0); TOTAL PROTEIN 6.9 GM/DL (6.4-8.2)
[2020-12-30] MEDS: HEPARIN SOD (PORCINE) 5000UNITS/ML 1ML VIAL/SYRINGE SC SCH ×3 (06:23→21:36)
[2020-12-30] MEDS: LEVOTHYROXINE 25MCG TABLET (0.025MG) PO SCH (06:23)
[2020-12-30] MEDS: HumaLOG INSULIN (NovoLOG) PER UNIT SC SCH ×4 (07:30→21:00)
[2020-12-30] MEDS: ATORVASTATIN 20 MG TAB PO SCH (08:25)
[2020-12-30] MEDS: SENOKOT S TAB PO SCH (08:25)
[2020-12-30] MEDS: ASPIRIN 81 MG CHEW TABLET PO SCH (08:25)
[2020-12-30] MEDS: METOPROLOL TART 25 MG TABLET PO SCH (08:26)
[2020-12-30] MEDS: **hydrALAZINE** 10 MG TAB PO SCH (08:27)
[2020-12-30] MEDS: NYSTATIN 100,000 UNITS/GM TOPICAL PWD 15 GM TOP SCH ×2 (08:27→21:37)
--- NOTE | 2020-12-30 13:05 | IPNPDOC ---
Date Seen The patient was seen on 12/30/20. Progress Note SUBJECTIVE: AAOx3 this AM. No acute events overnight. Denies chest pain, diaphoresis, incr SOB, fevers, chills. OBJECTIVE: PHYSICAL EXAMINATION: VS: Please see below GENERAL APPEARANCE: NAD, AAOx 3 HEENT: EOMI / MMM&P CARDIOVASCULAR: RRR/NMRG, + 1 pitting edema in b/l lower ext LUNGS: CTAB on RA ABDOMEN: contour obese /soft & NT MUSCULOSKELETAL: NCAT / LINDSEY x4 INTEGUMENT: groin and abdominal folds reddened, tender in some places. RLE rash, does not look herpetic and patient states is chronic, at times tender to touch NEUROLOGICAL: left eyelid closed- chronic. CN 2-12 grossly intact / speech not dysarthric PSYCHIATRIC: A&O x 3/ able to understand and follow all commands LABORATORY DATA: Please see below IMAGING: CT head: Minimal vascular calcification and generalized volume loss. Tiny old lacunar infarcts in the basal ganglia bilaterally. Unchanged from prior study. No acute intracranial abnormality. Renal US: Normal urinary tract sonography. Vascular US: Less than 50% category narrowing in the right internal carotid artery by Doppler velocity criteria. ICA carotid velocities have not changed in the short interval since the November 12, 2020 study. Less than 50% category narrowing in the left ICA by Doppler velocity criteria. ICA carotid velocities have not changed in the short interval since the November 12, 2020 prior study. US abdomen: 1. Cholelithiasis and trace pericholecystic fluid. No gallbladder wall thickening or biliary duct dilation to suggest acute cholecystitis. 2. Trace pericardial effusion. Chest xray: No acute findings. CT head: Mild cerebral volume loss and chronic white matter changes. No acute intracranial abnormality. Echocardiogram 11/11/20: Sinus bradycardia without intraventricular conduction disturbance. M-mode and 2-dimensional echocardiography was performed with pulse, continuous wave, color flow, and tissue Doppler studies. Moderate symmetrical left ventricle hypertrophy with somewhat speckled appearance suggestive of amyloidosis and global mild hypokinesis. Mildly dilated left atrium with Doppler evidence of grade 1 LV diastolic dysfunction and significantly elevated mean left atrial pressure. Mildly dilated right ventricle with a slight right ventricular free wall hypokinesis and mild pulmonary hypertension. Right atrium upper limits of normal with slightly dilated IVC and slightly reduced respiratory collapse suggestive of at least central venous pressure upper limits of normal to slightly increased. Normal aortic root diameters. Mild aortic valvular sclerosis without functional abnormality. Moderate mitral annular calcification with some thickening of the mitral leaflets with low flow appearance of leaflet motion but no obvious posterior systolic buckling. No inflow tract obstruction but at least moderate insufficiency. Normal appearing tricuspid valve with at least mild insufficiency. Unable to detect any intracardiac mass. Small posterior pericardial effusion fairly localized to the AV groove measuring0.8 cm at that point but no cardiac chamber compression. MICROBIOLOGY: Respiratory panel neg ASSESSMENT: Pt is 65 yr old F w HFpEF, DM2, Obesity, urinary incontinence, DLP and debility who is admitted for evaluation of syncope, HTN urgency, hyperkalemia and NELY. PLAN: Tremoring and "shakiness" likely 2/2 to anxiety - "tingling in hands" bilaterally, "lump" in throat, neck tightness -No new episodes from 12/29/20, went away on its own over time -CT head, trop, ECG showed no new issues, over time patient calmed down -Watch and if occurs again, consider medication to help HTN. Resolved emergency -BP stable today, took all AM meds -C/w home amlodipine,hydralazine, BB at 25 mg Po daily. -Holding ACEi and torsemide due to NELY -Hydralazine PRN PO if needed. Syncope poss 2/2 to HTN encephalopathy vs. TIA vs. vasovagal episode -AAOx 3 again today on exam, no episodes since admission -CT head, carotid US, most recent echo from 11/2020 above -Ammonia wnl -No neurological changes -No events on tele, discontinued -If neuro status changes, consider MRI NELY likey due to accelerated HTN, home medication (lasix, ACEi) -Baseline Cr wnl, today 1.37 -Renal US wnl -Daily labs, holding ACEi and torsemide Yeast infection of abd pain/groin likely 2/2 to urinary incontinence -Nystatin BID Physical deconditioning, weakness likely acute 2/2 to issues above with chronic component -PT: " pt needs to be indep consistently with transfers for safe d/c home alone a few hours. required min assist to lift legs in bed today. continue PT to maximize strength and promote indep mobility consistently for safe return home. recommend PH referral to continue on d/c home. " -C/w PT/OT Chronic HFpEF, not decompensated or in exacerbation -BNP 3501, 11/14/20 BNP 15K so not worsened -Holding ACEi, diuretics- restart when Cr improves further -C/w CCB, BB, Is&Os and weights, low salt diet , 2 gm sodium diet NIDDM2 -BS stable -Holding PO antihyperglycemic, FS and ISS AC/HS -CC diet Transaminitis -Liver US wnl -F/u hep screen -CMP DLP -Atorvastatin DVT px - Heparin Resolved issues: Hyperkalemia 2/2 NELY DISPOSITION: Lives with son at home with home health cna twice weekly. Notified PFS today that family may need more help at home. Full Code. VS, I&O, 24H, Fishbone Vital Signs/I&O Vital Signs Date Time Temp Pulse Resp B/P (MAP) Pulse Ox O2 Delivery O2 Flow Rate FiO2 12/30/20 08:26 74 134/60 12/30/20 08:00 96.7 18 97 Room Air I&O- Last 24 Hours up to 6 AM 12/30/20 06:00 Intake Total 1195 ml Output Total 700 ml Balance 495 ml Laboratory Data 24H LABS Laboratory Tests 2 12/29/20 16:01: Troponin I 0.03 12/29/20 16:22: Bedside Glucose (Misc Panel) 150H 12/29/20 21:19: Bedside Glucose (Misc Panel) 214H 12/30/20 05:03: Nucleated Red Blood Cells % (auto) 0.0, Anion Gap 5L, Glomerular Filtration Rate 41.5L, Calcium Level 8.7L, Total Bilirubin 0.4, Aspartate Amino Transf (AST/SGOT) 34, Alanine Aminotransferase (ALT/SGPT) 45, Alkaline Phosphatase 314H, Total Protein 6.9, Albumin 3.0L, Albumin/Globulin Ratio 0.8L 12/30/20 12:27: Bedside Glucose (Misc Panel) 145H CBC/BMP Laboratory Tests 12/30/20 05:03 Denisse Moore MD December 30, 2020 13:04
[2020-12-30 13:13] LABS: HEPATITIS B SURFACE ANTIGEN NEGATIVE (NEGATIVE)
[2020-12-30 13:40] LABS: HEPATITIS B CORE ANTIBODY IGM NEGATIVE (NEGATIVE); HEPATITIS C VIRUS ABY INDEX 0.1 INDEX (<0.8)
[2020-12-30 13:43] LABS: HEPATITIS A ANTIBODY IGM NEGATIVE (NEGATIVE)
[2020-12-31] MEDS: HEPARIN SOD (PORCINE) 5000UNITS/ML 1ML VIAL/SYRINGE SC SCH ×3 (05:28→21:34)
[2020-12-31] MEDS: LEVOTHYROXINE 25MCG TABLET (0.025MG) PO SCH (05:28)
[2020-12-31 06:00] VITALS: BP 142/74
[2020-12-31 06:26] LABS: HEMATOCRIT 36.9 % (36.0-47.0); MEAN CORPUSCULAR HEMOGLOBIN 28.3 pg (27.0-33.0); MEAN CORPUSCULAR HGB CONC 32.5 g/dl (32.0-36.5); PLATELET COUNT, AUTOMATED 220 10^3/uL (150-450); RED BLOOD COUNT 4.24 10^6/uL (4.00-5.40); WHITE BLOOD COUNT 6.6 10^3/uL (4.0-10.0)
[2020-12-31 06:52] LABS: BILIRUBIN,TOTAL 0.5 MG/DL (0.2-1.0); CALCIUM LEVEL 8.6 MG/DL (8.8-10.2); CREATININE FOR GFR 1.28 MG/DL (0.55-1.30); GLOMERULAR FILTRATION RATE 44.8 (>45); POTASSIUM SERUM 5.1 MEQ/L (3.5-5.1)
[2020-12-31] MEDS: HumaLOG INSULIN (NovoLOG) PER UNIT SC SCH ×4 (07:30→21:00)
[2020-12-31] MEDS: ATORVASTATIN 20 MG TAB PO SCH (08:21)
[2020-12-31] MEDS: ASPIRIN 81 MG CHEW TABLET PO SCH (08:21)
[2020-12-31] MEDS: SENOKOT S TAB PO SCH (08:21)
[2020-12-31] MEDS: **hydrALAZINE** 10 MG TAB PO SCH (08:21)
[2020-12-31] MEDS: NYSTATIN 100,000 UNITS/GM TOPICAL PWD 15 GM TOP SCH ×2 (08:22→21:34)
[2020-12-31] MEDS: METOPROLOL TART 25 MG TABLET PO SCH (08:22)
--- NOTE | 2020-12-31 10:52 | DSES ---
DISCHARGE SUMMARY DATE OF ADMISSION: 12/28/2020 DATE OF DISCHARGE: 12/31/2020 PRINCIPAL DIAGNOSIS: Hypertensive emergency. SECONDARY DIAGNOSES: 1. Acute kidney injury. 2. Bilateral hand tremulousness inferring with self-care. 3. Syncope probably secondary to vasovagal episode. 4. Cutaneous yeast infection secondary to urinary incontinence. 5. Physical deconditioning. 6. Congestive heart failure with preserved ejection fraction. 7. Type 2 diabetes. 8. Hyperlipidemia. 9. Abnormal liver function tests. HISTORY: The patient was admitted 12/28 after son found her passed out. She was quite hypertensive in the emergency room at 211/85. Please see details in the history and physical from admission. HOSPITAL COURSE: The patient was admitted to a medical bed. Blood pressure came under good control. There was some question about whether she is getting her medications and the care she is receiving at home. I assumed her care on the day of discharge. She was resting comfortably. Her tremor had resolved. Her blood pressure had come under good control. Her renal function had improved with discontinuation of her SUSAN inhibitor and diuretics, and she is being transferred to ARU. DISCHARGE PHYSICAL EXAMINATION: VITAL SIGNS: On the day of discharge, her blood pressure is 131/58. She is afebrile. Vital signs are stable. GENERAL: She is alert and conversant. NECK: There is no JVD. LUNGS: Clear. HEART: Regular rate and rhythm with a 1/6 holosystolic murmur. ABDOMEN: Soft and nontender with no masses. EXTREMITIES: There is trace to 1+ peripheral edema. NEUROLOGIC: Nonfocal. Left eye lid ptosis, which is chronic. She understands and follows all commands. IMAGING DATA: CT of the head showed no acute findings. Previous old lacunar infarcts. Carotid ultrasound showed less than 50% stenosis bilaterally. Abdominal ultrasound showed gallstones. No gallbladder thickening. Trace pericardial effusion. Echocardiogram with mildly dilated left atrium and grade 1 diastolic dysfunction. Moderate mitral regurgitation, aortic sclerosis without stenosis, small pericardial effusion with no cardiac chamber compression, and mild pulmonary hypertension. Renal ultrasound showed medical renal disease. No hydronephrosis. LABORATORY DATA: White count today 6.6, hemoglobin 12, platelets 220,000. Sodium 140, potassium 5.1, BUN 48, creatinine 1.28; creatinine was 1.58 on admission. The BNP on admission 3501. Hepatitis panel is negative. DISPOSITION: She is discharged to acute rehabilitation unit (ARU). DISCHARGE ACTIVITY: As tolerated. DISCHARGE DIET: No added salt. DISCHARGE MEDICATIONS: 1. Lopressor 25 mg daily. 2. Zofran as needed. 3. Amlodipine 10 mg daily. 4. Hydralazine 10 mg daily (consideration should be given to discontinuing this and watching her blood pressure in the ARU, it is not really a once a day medication). 5. Nystatin powder as needed. 6. Bowel care as needed. 7. Atorvastatin 20 mg daily. 8. Aspirin 81 mg daily. 9. Sliding scale insulin with coverage. 10. Levothyroxine 25 mcg daily. 11. Milk of magnesia as needed. 12. Mylanta as needed. At the time of this dictation, there are no pending labs. MTDD
[2020-12-31] MEDS: ACETAMINOPHEN TAB 650MG DOSE (2X325MG) PO PRN (11:49)
--- NOTE | 2020-12-31 13:40 | IPN ---
PROGRESS NOTE DATE: 12/31/2020 SUBJECTIVE: Bev's discharge was cancelled. Initially this was because ARU, which I had been told on "care rounds" was accepting the patient, was actually not accepting the patient. Then the nurse called me because the patient had developed some bilateral shoulder pain radiating to her arm. She also has some associated chest pain. Chest pain varied with respiration and position. OBJECTIVE: I examined her at the bedside. She was resting comfortably. Her right chest wall was tender to palpate at the area of her indicated chest pain. Palpation at the costosternal junction reproduced her pain. She also had pain to rotate her shoulders that radiated to her arms. DIAGNOSTIC STUDIES: I obtained an EKG, which showed no significant change from previous. IMPRESSION/PLAN: Chest pain that seems noncardiac in origin. This is reproduced by palpating the chest, it is positional, and varies with respiration. However, she has a history of vascular disease so I am running a set of troponins and giving her some heating pad to the chest wall, and not making plans for discharge today.
[2020-12-31 14:00] VITALS: BP 129/62
[2020-12-31 15:46] LABS: CK-MB VALUE MASS 1.8 NG/ML (<3.6); MB/CK RELATIVE INDEX 3.91 (< OR =4); TROPONIN I 0.03 NG/ML (< 0.10)
[2020-12-31 20:32] LABS: CK-MB VALUE MASS 2.5 NG/ML (<3.6); MB/CK RELATIVE INDEX 5.1 (< OR =4); TROPONIN I 0.02 NG/ML (< 0.10)
--- NOTE | 2020-12-31 20:52 | ECGEPIP ---
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
[2020-12-31 22:00] VITALS: BP 132/63
[2021-01-01 06:00] VITALS: BP 153/70
[2021-01-01] MEDS: LEVOTHYROXINE 25MCG TABLET (0.025MG) PO SCH (06:04)
[2021-01-01] MEDS: HEPARIN SOD (PORCINE) 5000UNITS/ML 1ML VIAL/SYRINGE SC SCH ×2 (06:04→14:00)
[2021-01-01 07:03] LABS: CK-MB VALUE MASS 2.1 NG/ML (<3.6); MB/CK RELATIVE INDEX 4.04 (< OR =4); TROPONIN I 0.03 NG/ML (< 0.10)
[2021-01-01] MEDS: HumaLOG INSULIN (NovoLOG) PER UNIT SC SCH ×2 (07:30→13:00)
[2021-01-01] MEDS: SENOKOT S TAB PO SCH (08:10)
[2021-01-01] MEDS: ATORVASTATIN 20 MG TAB PO SCH (08:10)
[2021-01-01] MEDS: ASPIRIN 81 MG CHEW TABLET PO SCH (08:10)
[2021-01-01 08:11] VITALS: BP 132/60
[2021-01-01] MEDS: **hydrALAZINE** 10 MG TAB PO SCH (08:11)
[2021-01-01] MEDS: METOPROLOL TART 25 MG TABLET PO SCH (08:11)
[2021-01-01] MEDS: NYSTATIN 100,000 UNITS/GM TOPICAL PWD 15 GM TOP SCH (08:11)
[2021-01-01 11:47] LABS: CALCIUM LEVEL 9.1 MG/DL (8.8-10.2); CREATININE FOR GFR 1.28 MG/DL (0.55-1.30); GLOMERULAR FILTRATION RATE 44.8 (>45); POTASSIUM SERUM 4.9 MEQ/L (3.5-5.1)
[2021-01-01 14:00] VITALS: BP 127/55
[2021-01-01] MEDS ORDERED: METO1TAB87 PO (14:04)
--- NOTE | 2021-01-01 18:24 | IPNPDOC ---
Text Note Date of Service The patient was seen on 01/01/21. NOTE Hospitalist Progress Note Subjective: The patient does not have any complaints today, other than the fact that she weak. The plan was to discharge her home today to the care of her family, however there seems to be some logistical troubles with getting this to happen, therefore it appears as though her discharge will not occur today. Objective: General: Awake, alert, oriented 3. Not in any acute distress. HEENT: Head normocephalic, atraumatic, sclera are nonicteric. Hearing is grossly intact to conversation. Respiratory: Clear to auscultation bilaterally with no wheezes, rales, or rhonchi. Cardiovascular: Regular rate and rhythm, with no rubs, gallops, or murmur. Abdomen: Soft, nontender, nondistended, no hepatosplenomegaly appreciated. Bowel sounds present. Extremities: 2+ pulses in the radial and dorsalis pedis bilaterally. No evidence of clubbing or cyanosis. Assessment: Hypertensive emergency, resolved Acute kidney injury, resolved Bilateral hand tremulousness interfering with self-care Syncope, probably secondary to vasovagal episode Cutaneous yeast infection secondary to urinary incontinence and physical deconditioning Congestive heart failure with preserved ejection fraction Type 2 diabetes mellitus Hyperlipidemia Abnormal liver function tests Plan: Continue working with physical therapy for physical deconditioning. Continue working with PFS to find a safe and appropriate plan for discharge. Discharge summary was already dictated on 12/31/2020 VS,Leslee, I+O VS, Leslee, I+O Laboratory Tests 01/01/21 05:44 Vital Signs Date Time Temp Pulse Resp B/P (MAP) Pulse Ox O2 Delivery O2 Flow Rate FiO2 01/01/21 14:00 98.0 65 18 127/55 (79) 96 Room Air I&O- Last 24 Hours up to 6 AM 01/01/21 06:00 Intake Total 1040 ml Output Total 650 ml Balance 390 ml MAYRA BAUMANN DO January 01, 2021 18:24
== END 2021-01-01 17:20 | disposition home health service (06) | DRG 199 ==
LOC: M ED 21:41 → M ED INP 12-28 00:34 → M PCU 12-28 04:47 → M MSPAV 12-30 22:28
PROVIDERS: ADMIT Internal Medicine; ATTEND Family Medicine
DX: I16.1 Hypertensive emergency (principal); N17.9 Acute kidney failure, unspecified; B37.89 Other sites of candidiasis; I50.32 Chronic diastolic (congestive) heart failure; E87.5 Hyperkalemia; Z86.73 Personal history of transient ischemic attack (TIA), and cerebral infarction without residual deficits; E03.9 Hypothyroidism, unspecified; E11.9 Type 2 diabetes mellitus without complications; R32 Unspecified urinary incontinence; E78.5 Hyperlipidemia, unspecified; E66.9 Obesity, unspecified; K80.20 Calculus of gallbladder without cholecystitis without obstruction; R74.01 Elevation of levels of liver transaminase levels; Z79.84 Long term (current) use of oral hypoglycemic drugs; Z79.82 Long term (current) use of aspirin; Z79.899 Other long term (current) drug therapy; Z88.5 Allergy status to narcotic agent; Z68.30 Body mass index [BMI] 30.0-30.9, adult; Z20.822 Contact with and (suspected) exposure to COVID-19; R25.1 Tremor, unspecified; Z72.3 Lack of physical exercise; R07.89 Other chest pain

== ENCOUNTER 2021-01-10 14:28 | Observation (INO) | payer OTHER ==
[~2021-01-10] VITALS: Ht 165.1 cm; Wt 74.5 kg
[~2021-01-10 14:28] MED LIST changes: +ASPI81CH33 PO; +METO1TAB87 PO; +SENN-23 PO
[2021-01-10 16:37] LABS: BASO % 0.5 % (0.0-1.0); EOS # 0.4 10^3/uL (0.0-0.5); EOS % 6.6 % (0.0-3.0); HEMATOCRIT 31.1 % (36.0-47.0); HEMOGLOBIN 9.9 g/dl (12.0-15.5); LYMPH # 1.3 10^3/uL (1.5-5.0); LYMPH % 20.1 % (24.0-44.0); MEAN CORPUSCULAR HGB CONC 31.8 g/dl (32.0-36.5); MEAN CORPUSCULAR VOLUME 88.1 fl (80.0-96.0); MONO # 0.4 10^3/uL (0.0-0.8); MONO % 6.5 % (2.0-8.0); NEUTROPHILS # 4.2 10^3/uL (1.5-8.5); NEUTROPHILS % 66.1 % (36.0-66.0); PLATELET COUNT, AUTOMATED 183 10^3/uL (150-450); RED BLOOD COUNT 3.53 10^6/uL (4.00-5.40); WHITE BLOOD COUNT 6.3 10^3/uL (4.0-10.0)
[2021-01-10 17:13] LABS: ALBUMIN 2.9 GM/DL (3.2-5.2); BILIRUBIN,DIRECT 0.2 MG/DL (0.0-0.2); BILIRUBIN,TOTAL 0.3 MG/DL (0.2-1.0); CALCIUM LEVEL 8.7 MG/DL (8.8-10.2); CK-MB VALUE MASS 2.6 NG/ML (<3.6); CREATININE FOR GFR 1.3 MG/DL (0.55-1.30); MB/CK RELATIVE INDEX 5.31 (< OR =4); POTASSIUM SERUM 5.7 MEQ/L (3.5-5.1); THYROID STIMULATING HORMONE 2.88 uIU/ML (0.358-3.740); TOTAL PROTEIN 6.6 GM/DL (6.4-8.2); TROPONIN I 0.02 NG/ML (< 0.10)
--- NOTE | 2021-01-10 18:58 | REPVR ---
PROCEDURE INFORMATION: Exam: CT Head Without Contrast Exam date and time: 01/10/2021 6:05 PM Age: 65 years old Clinical indication: Altered mental status/memory loss; Additional info: AMS TECHNIQUE: Imaging protocol: Computed tomography of the head without contrast. Radiation optimization: All CT scans at this facility use at least one of these dose optimization techniques: automated exposure control; mA and/or kV adjustment per patient size (includes targeted exams where dose is matched to clinical indication); or iterative reconstruction. COMPARISON: CT Head without contrast 12/29/2020 12:35 PM FINDINGS: Brain: There is a small low-density area left basal ganglia region and right external capsule region probably representing chronic ischemic changes. This is similar to the previous CT. There is no evidence of mass effect. Cerebral ventricles: Normal ventricles. Paranasal sinuses: Clear appearing paranasal sinuses. Mastoid air cells: Clear mastoid air cells. There is no evidence of intracranial bleed. Orbital cavity: Symmetric orbits. IMPRESSION: Chronic ischemic changes. Electronically signed by: Tavo Pickens On 01/10/2021 18:57:16 PM
[2021-01-10 19:09] LABS: RSV AMPLIFICATION NEGATIVE (NEGATIVE)
[2021-01-10] MEDS ORDERED: ATOR40TA75 PO (19:14)
[2021-01-10] MEDS ORDERED: METO1TAB87 PO (19:14)
[2021-01-10] MEDS ORDERED: ASPI81TA26 PO (19:14)
--- NOTE | 2021-01-10 19:18 | HPEPDOC ---
General Date of Admission 01/10/21 Date of Service: Jan 10, 2021 Chief Complaint The patient is a 65-year-old female admitted with a reason for visit of Alt Mental Status. Source: Patient, RN/MD History of Present Illness 65-year-old female with past medical history of diabetes, hypertension, hypothyroid,hyperlipidemia or stroke seen in MRI. Vasovagal syncope, hip dysplasia so wheelchair-bound for many years. Mild up from [place] in 2019 with her to be close to their son has was very sick and had a limb amputation and she being wheelchair-bound, could not care for him. Unfortunately, passed a week after moving up here in January 2020. He has noticed episodes when she will be confused and not understand what is being spoken to her. She has had 2 admissions, one in November and one in December of this year. The first one was possible stroke. Stroke was ruled out. The second one was vasovagal syncope. Today. She went to see her primary care provider for the first time when she was noted to be confused and lethargic. Blood pressure checked at the primary provider's office showed a systolic BP of 100. The felt that the she may be hypoglycemic, so some juice was given and blood sugar was checked after that which came out to be 213. Patient was sent to the emergency room for evaluation of altered mental status. In the ED on my interview, patient didn't know why she was in the emergency room. She reports that she was at the doctor's office and was talking to her and then next thing she knows is that they're giving her juice and was then sending her to the emergency room. . She couldn't tell me her home address. She knew she was in the hospital in [place]. She knew the year was 2020 and that it was January but did not know the date correctly. . She was able to give me most of her past medical history and some of her medications. She did tell me her passed on February 022019. As per son she gets Meals on Wheels and he also takes food to her. Her appetite is good and she finishes her meals. He does tell me that he has been spending mo re time at his mother's place other than a his own home because she is needing more and more help. The patient was very pleasant and interactive and interested in knowing what's going on. She did ask me whether she should continue taking her Lasix and potassium are not. She is being admitted for evaluation of altered mental status Home Medications Scheduled Amlodipine Besylate (Amlodipine Besylate) 10 Mg Tablet, 10 MG PO DAILY, (Reported) Aspirin (Aspirin) 81 Mg Tab.chew, 81 MG PO DAILY, (Reported) Atorvastatin Calcium (Atorvastatin Calcium) 20 Mg Tablet, 20 MG PO DAILY, (Re ported) Hydralazine HCl (Hydralazine HCl) 10 Mg Tablet, 10 MG PO DAILY, (Reported) Levothyroxine Sodium (Levothyroxine Sodium) 25 Mcg Tablet, 25 MCG PO DAILY, (Reported) Metoprolol Tartrate (Metoprolol Tartrate) 25 Mg Tablet, 25 MG PO DAILY Potassium Chloride (Potassium Chloride) 20 Meq Tablet.er, 20 MEQ PO DAILY, (Reported) Allergies Coded Allergies: codeine (Verified Adverse Reaction, Mild, nausea, 11/11/20) Past Medical History Medical History Vasovagal syncopal in December 2020 , Hypertension , Hypothyroidism, Old Cerebellar CVA. Combined CHF with EF fo 50%, grade 1 diastolic dysfunction, moderate pulmonary hypertension. 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 urinary incontinence, hyperlipidemia, cutaneous [place] infection, tremors, physical deconditioning and debility Hip dysplasia so wheel chair bound for 5 years. Constipation. Surgical History section x2 Family History Significant Family History: Cancer, Diabetes (mother and father), Other (father was alcoholic) Social History * Smoker: Denies Alcohol: Denies Drugs: denies A-FIB/CHADSVASC A-FIB History Current/History of A-Fib/PAF?: No Review of Systems Constitutional: Denies: Chills, Fever, Night Sweats Eyes: Reports: Other (blind in the left eye); Denies: Pain, Vision change ENT: Denies: Head Aches, Ear Pain, Dysphagia Skin: Denies: Rash, Lesions, Breakdown Pulmonary: Denies: Dyspnea, Cough Cardiovascular: Denies: Chest Pain, Palpitations, Orthopnea, Paroxysmal Noc. Dyspnea, Lt Headedness Gastrointestinal: Reports: Constipation; Denies: Nausea, Vomiting, Abdominal Pain, Diarrhea Genitourinary: Reports: Incontinence Physical Examination General Exam: Positive: Alert, Cooperative, No Acute Distress, Other (oriented to place and person, did not get salomón date right) Eye Exam: Positive: Other Eye Symptoms (keeps the left eye closed) Neck Exam: Positive: Supple; Negative: JVD, thyromegaly Chest Exam: Positive: Clear to auscultation, Normal air movement Heart Exam: Positive: Rate Normal, Regular Rhythm, Normal S1, Normal S2; Negative: Murmurs, Rubs Abdomen Exam: Positive: Normal bowel sounds, Soft; Negative: Tenderness, Hepatospenomegaly Extremity Exam: Positive: Other (wasting of small muscles of the hand); Negative: Clubbing, Cyanosis, Edema Neuro Exam: Positive: Normal Speech Vital Signs Vital Signs Date Time Temp Pulse Resp B/P (MAP) Pulse Ox O2 Delivery O2 Flow Rate FiO2 01/10/21 15:28 64 17 96 Room Air 01/10/21 15:19 157/69 (98) 01/10/21 14:46 97.3 Laboratory Data Labs 24H Laboratory Tests 2 01/10/21 16:19: Immature Granulocyte % (Auto) 0.2, Neutrophils (%) (Auto) 66.1H, Lymphocytes (%) (Auto) 20.1L, Monocytes (%) (Auto) 6.5, Eosinophils (%) (Auto) 6.6H, Basophils (%) (Auto) 0.5, Neutrophils # (Auto) 4.2, Lymphocytes # (Auto) 1.3L, Monocytes # (Auto) 0.4, Eosinophils # (Auto) 0.4, Basophils # (Auto) 0.0, Nucleated Red Blood Cells % (auto) 0.0, Anion Gap 5L, Glomerular Filtration Rate 44.0L, Lactic Acid Level 1.3, Calcium Level 8.7L, Total Bilirubin 0.3, Direct Bilirubin 0.2, Aspartate Amino Transf (AST/SGOT) 49H, Alanine Aminotransferase (ALT/SGPT) 63, Alkaline Phosphatase 304H, Ammonia 34H, Total Creatine Kinase 49, Creatine Kinase MB 2.6, Creatine Kinase MB Relative Index 5.31H, Troponin I 0.02, Total Protein 6.6, Albumin 2.9L, Albumin/Globulin Ratio 0.8L, Thyroid Stimulating Hormone (TSH) 2.880 CBC/BMP Laboratory Tests 01/10/21 16:19 Assessment/Plan 65-year-old female with past medical history of diabetes, hypertension, hypothyroid,hyperlipidemia or stroke seen in MRI. Vasovagal syncope, hip dysplasia so wheelchair-bound for many years. Mild up from [place] in 2019 with her to be close to their son as was very sick and had a limb amputation and she being wheelchair-bound, could not care for him. Unfortunately, passed a week after moving up here in January 2020. He has noticed episodes when she will be confused and not understand what is being spoken to her. She went to see her primary care provider for the first time when she was noted to be confused and lethargic. Blood pressure checked at the primary provider's office showed a systolic BP of 100. The felt that the she may be hypoglycemic, so some juice was given and blood sugar was checked after that which came out to be 213. Patient was sent to the emergency room for evaluation of altered mental status. Altered mental status At present on my interview in the emergency room patient did not have any altered mental status. Patient is a very pleasant and soft spoken. Etiology to be determined No signs of infection. No focal neuro deficit to suspect stroke Her blood pressure was okay in the ED Will check orthostatic blood pressures Son does say that he has not his episodes when she would be confused I am suspicious whether these are features of beginning of dementia TSH is normal, would get the vitamin B-12, B1, copper and syphilis PCR Diabetes Will continue with them Levemir and lispro Fingerstick before meals and at bedtime Hyperkalemia From protection supplementation. We will discontinue Combined systolic and diastolic CHF Patient appears euvolemic Will continue with the Lasix Hypothyroid Will continue Synthroid Hypertension Blood pressure adequately controlled DARRIUS. We'll continue with home medications Plan / VTE VTE Prophylaxis Ordered?: Yes WILMER BUTLER MD Jan 10, 2021 18:00
[2021-01-10 21:30] VITALS: BP 139/53
--- NOTE | 2021-01-10 21:32 | ECGEPIP ---
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
[2021-01-11 04:58] LABS: BASO % 0.3 % (0.0-1.0); EOS # 0.4 10^3/uL (0.0-0.5); EOS % 6.2 % (0.0-3.0); HEMATOCRIT 34.8 % (36.0-47.0); HEMOGLOBIN 11.6 g/dl (12.0-15.5); LYMPH # 1.5 10^3/uL (1.5-5.0); MEAN CORPUSCULAR HEMOGLOBIN 28.5 pg (27.0-33.0); MEAN CORPUSCULAR HGB CONC 33.3 g/dl (32.0-36.5); MEAN CORPUSCULAR VOLUME 85.5 fl (80.0-96.0); MONO # 0.5 10^3/uL (0.0-0.8); MONO % 7.3 % (2.0-8.0); NEUTROPHILS # 3.8 10^3/uL (1.5-8.5); NEUTROPHILS % 60.9 % (36.0-66.0); PLATELET COUNT, AUTOMATED 193 10^3/uL (150-450); RED BLOOD COUNT 4.07 10^6/uL (4.00-5.40); WHITE BLOOD COUNT 6.2 10^3/uL (4.0-10.0)
[2021-01-11 05:20] LABS: BLOOD UREA NITROGEN 48 MG/DL (7-18); CALCIUM LEVEL 8.5 MG/DL (8.8-10.2); CARBON DIOXIDE LEVEL 24 MEQ/L (21-32); CHLORIDE LEVEL 112 MEQ/L (98-107); CREATININE FOR GFR 1.12 MG/DL (0.55-1.30); GLOMERULAR FILTRATION RATE 52.3 (>45); GLUCOSE, FASTING 125 MG/DL (70-100); POTASSIUM SERUM 5.1 MEQ/L (3.5-5.1); SODIUM LEVEL 141 MEQ/L (136-145)
[2021-01-11 06:00] VITALS: BP 141/66
[2021-01-11] MEDS ORDERED: LEVOTHYROXINE 25MCG TABLET (0.025MG) PO SCH (06:00)
[2021-01-11] MEDS ORDERED: ASPIRIN 81MG ENTERIC TABLET PO SCH (09:00)
[2021-01-11] MEDS ORDERED: ATORVASTATIN 20 MG TAB PO SCH (09:00)
[2021-01-11] MEDS ORDERED: ENOXAPARIN 40MG/0.4ML SYRINGE (J1650 PER 10MG) SC SCH (09:00)
[2021-01-11 09:30] VITALS: BP 159/73
[2021-01-11 09:51] VITALS: BP 159/73
[2021-01-11] MEDS ORDERED: METF10004 PO ×2 (10:42→13:16)
[2021-01-11] MEDS ORDERED: METO1TAB87 PO (10:42)
--- NOTE | 2021-01-11 10:55 | IPNPDOC ---
Subjective Date Seen The patient was seen on 01/11/21. Subjective Chief Complaint/HPI No complaints this morning. Awake, alert and oriented. Very pleasant wants to go home. She says that her son's brother in law who is in his 30s lives with her. He does have h/o traumatic brain injury in his teens but he is physically fit and able to help her when she needs help around the apartment. Objective Physical Examination General Exam: Positive: Alert, Cooperative, No Acute Distress, Other (oriented to place and person, did not get salomón date right) Eye Exam: Positive: Other Eye Symptoms (keeps the left eye closed) Neck Exam: Positive: Supple; Negative: JVD, thyromegaly Chest Exam: Positive: Clear to auscultation, Normal air movement Heart Exam: Positive: Rate Normal, Regular Rhythm, Normal S1, Normal S2; Negative: Murmurs, Rubs Abdomen Exam: Positive: Normal bowel sounds, Soft; Negative: Tenderness, Hepatospenomegaly Extremity Exam: Positive: Other (wasting of small muscles of the hand); Negative: Clubbing, Cyanosis, Edema Neuro Exam: Positive: Normal Speech Assessment /Plan Assessment 65-year-old female with past medical history of diabetes, hypertension, hypothyroid,hyperlipidemia or stroke seen in MRI. Vasovagal syncope, hip dysplasia so wheelchair-bound for many years. Mild up from [place] in 2019 with her to be close to their son as was very sick and had a limb amputation and she being wheelchair-bound, could not care for him. Unfortunately, passed a week after moving up here in January 2020. He has noticed episodes when she will be confused and not understand what is being spoken to her. She went to see her primary care provider for the first time when she was noted to be confused and lethargic. Blood pressure checked at the primary provider's office showed a systolic BP of 100. The felt that the she may be hypoglycemic, so some juice was given and blood sugar was checked after that which came out to be 213. Patient was sent to the emergency room for evaluation of altered mental status. Altered mental status Etiology to be determined Possible early dementia. No signs of infection. No focal neuro deficit to suspect stroke, CT no acute events. Son does say that he has not his episodes when she would be confused and not understand what is being spoken to her. TSH is normal, would get the vitamin B-12, B1, copper and syphilis PCR Would need referral to neurology. Diabetes resume home metformin 1000 mg bid. Fingerstick bid. Hyperkalemia From protection supplementation. will discontinue potassium as now she is off torsemide. Combined systolic and diastolic CHF EF of 50 % with grade 1 diastolic dysfunction. Patient appears euvolemic will not give any diuretics. Patient used to be on lasix then torsemie by these were stopped in prior admissions will no resume any diuretics now. Also stopped potassium. Hypothyroid Will continue Synthroid 25 mcg Hypertension Blood pressure adequately controlled. Patient was taken off Lisinopril 40 mg before. Confirmed with son see is not being given any lisinopril. She has 2 active prescriptions for metoprolol tartarate 25 mg and 100 mg. As per son she is taking the 25 mg once a day. will increase metoprolol 25 mg to BID. will dc hydralazine. will continue amlodipine. Was taken off all diuretics. Dispo: home. Plan/VTE VTE Prophylaxis Ordered?: Yes VS, I&O, 24H, Leslee Vital Signs/I&O Vital Signs Date Time Temp Pulse Resp B/P (MAP) Pulse Ox O2 Delivery O2 Flow Rate FiO2 01/11/21 09:51 64 159/73 01/11/21 06:00 97.5 18 98 Room Air I&O- Last 24 Hours up to 6 AM 01/11/21 05:59 Intake Total 300 ml Output Total 0 ml Balance 300 ml Laboratory Data 24H LABS Laboratory Tests 2 01/10/21 16:19: Immature Granulocyte % (Auto) 0.2, Neutrophils (%) (Auto) 66.1H, Lymphocytes (%) (Auto) 20.1L, Monocytes (%) (Auto) 6.5, Eosinophils (%) (Auto) 6.6H, Basophils (%) (Auto) 0.5, Neutrophils # (Auto) 4.2, Lymphocytes # (Auto) 1.3L, Monocytes # (Auto) 0.4, Eosinophils # (Auto) 0.4, Basophils # (Auto) 0.0, Nucleated Red Blood Cells % (auto) 0.0, Anion Gap 5L, Glomerular Filtration Rate 44.0L, Lactic Acid Level 1.3, Calcium Level 8.7L, Total Bilirubin 0.3, Direct Bilirubin 0.2, Aspartate Amino Transf (AST/SGOT) 49H, Alanine Aminotransferase (ALT/SGPT) 63, Alkaline Phosphatase 304H, Ammonia 34H, Total Creatine Kinase 49, Creatine Kinase MB 2.6, Creatine Kinase MB Relative Index 5.31H, Troponin I 0.02, Total Protein 6.6, Albumin 2.9L, Albumin/Globulin Ratio 0.8L, Thyroid Stimulating Hormone (TSH) 2.880 01/10/21 17:39: Coronavirus (COVID-19)(PCR) NEGATIVE, Influenza Type A (RT-PCR) NEGATIVE, Influenza Type B (RT-PCR) NEGATIVE, Respiratory Syncytial Virus (PCR) NEGATIVE 01/11/21 04:47: Immature Granulocyte % (Auto) 0.3, Neutrophils (%) (Auto) 60.9, Lymphocytes (%) (Auto) 25.0, Monocytes (%) (Auto) 7.3, Eosinophils (%) (Auto) 6.2H, Basophils (%) (Auto) 0.3, Neutrophils # (Auto) 3.8, Lymphocytes # (Auto) 1.5, Monocytes # (Auto) 0.5, Eosinophils # (Auto) 0.4, Basophils # (Auto) 0.0, Nucleated Red Blood Cells % (auto) 0.0, Anion Gap 5L, Glomerular Filtration Rate 52.3, Calcium Level 8.5L CBC/BMP Laboratory Tests 01/10/21 16:19 01/11/21 04:47 WILMER BUTLER MD Jan 11, 2021 10:54
[2021-01-13 11:53] LABS: VITAMIN B12 LEVEL 510 PG/ML (247-911)
== END 2021-01-11 13:43 | disposition home or self-care (01) ==
LOC: EDSEX 14:28 → EDBD 14:28 → M ED 14:28 → M ED INP 18:25 → ENRESERV 20:45 → CANRESERV 20:45 → M MSPAV 21:29
PROVIDERS: ADMIT Internal Medicine Nephrology; ATTEND Internal Medicine Nephrology
DX: R41.82 Altered mental status, unspecified (principal); E11.9 Type 2 diabetes mellitus without complications; E87.5 Hyperkalemia; I50.40 Unspecified combined systolic (congestive) and diastolic (congestive) heart failure; E03.9 Hypothyroidism, unspecified; I11.0 Hypertensive heart disease with heart failure; Z86.73 Personal history of transient ischemic attack (TIA), and cerebral infarction without residual deficits; I27.20 Pulmonary hypertension, unspecified; E78.5 Hyperlipidemia, unspecified; R25.1 Tremor, unspecified; R32 Unspecified urinary incontinence; K59.00 Constipation, unspecified; M85.08 Fibrous dysplasia (monostotic), other site; Z99.3 Dependence on wheelchair; Z79.899 Other long term (current) drug therapy; Z79.4 Long term (current) use of insulin; Z88.5 Allergy status to narcotic agent
CPT/HCPCS: 36415; 70450; 80048; 80076; 82140; 82550; 82553; 82607; 83605; 84425; 84443; 85025; 86780; 87631; 93005; 93041; 94760; 96372; 99285; J1650

== ENCOUNTER 2022-04-07 09:19 | Emergency (ER) | payer OTHER ==
[~2022-04-07] VITALS: Ht 154.9 cm; Wt 78.6 kg
[~2022-04-07 09:19] MED LIST changes: +ASPI81TA26 PO; +ATOR40TA75 PO
[2022-04-07] MEDS ORDERED: amLODIPine 5 MG TAB PO ONE (10:25)
[2022-04-07] MEDS ORDERED: **hydrALAZINE** 10 MG TAB PO ONE (10:25)
[2022-04-07] MEDS ORDERED: METOPROLOL TART 50 MG TAB PO ONE (10:25)
[2022-04-07 10:44] VITALS: BP 225/99
[2022-04-07] MEDS ORDERED: AMLO1TAB24 (10:46)
[2022-04-07] MEDS ORDERED: METO100T5 (10:46)
[2022-04-07] MEDS ORDERED: EUTH25TA (10:46)
[2022-04-07] MEDS ORDERED: ATOR1TAB21 (10:46)
[2022-04-07] MEDS ORDERED: SENN-80 (10:46)
[2022-04-07] MEDS ORDERED: HYDR10TAB (10:46)
[2022-04-07 12:38] LABS: CALCIUM LEVEL 8.2 MG/DL (8.8-10.2); CREATININE FOR GFR 1.79 MG/DL (0.55-1.30); GLOMERULAR FILTRATION RATE 30.3 (>45); POTASSIUM SERUM 4.3 MEQ/L (3.5-5.1)
[2022-04-07 13:28] VITALS: BP 170/77
== END 2022-04-07 16:03 | disposition home or self-care (01) ==
LOC: EDBD 09:19 → M ED 09:19
DX: N18.30 Chronic kidney disease, stage 3 unspecified (principal); T38.3X5A Adverse effect of insulin and oral hypoglycemic [antidiabetic] drugs, initial encounter; E11.9 Type 2 diabetes mellitus without complications; I10 Essential (primary) hypertension; I50.30 Unspecified diastolic (congestive) heart failure; E78.5 Hyperlipidemia, unspecified; E03.9 Hypothyroidism, unspecified; G25.0 Essential tremor; Z79.899 Other long term (current) drug therapy; Z79.890 Hormone replacement therapy; Z79.82 Long term (current) use of aspirin; Z88.5 Allergy status to narcotic agent

== ENCOUNTER 2022-05-05 18:10 | Emergency (ER) | payer OTHER ==
[~2022-05-05] VITALS: Ht 154.9 cm; Wt 80.0 kg
[~2022-05-05 18:10] MED LIST changes: +AMLO1TAB24; +ATOR1TAB21; +EUTH25TA; +HYDR10TAB; +METO100T5; +SENN-80
[2022-05-05 19:09] LABS: ABG BASE EXCESS -2.2 (-2.0-2.0); ABG HCO3 22.1 MEQ/L (22.0-26.0); ABG O2 SATURATION 97.1 % (95.0-99.0); ABG PARTIAL PRESSURE CO2 36.1 mmHg (35.0-45.0); ABG PARTIAL PRESSURE O2 97.4 mmHg (75.0-100.0); ABG STANDARD HCO3 22.6 MEQ/L (22.0-26.0); ABG TOTAL CO2 23.2 MEQ/L (23.0-31.0); ABG pH (ARTERIAL) 7.404 UNITS (7.350-7.450)
[2022-05-05 19:17] LABS: BASO % 0.4 % (0.0-1.0); EOS # 0.1 10^3/uL (0.0-0.5); EOS % 0.6 % (0.0-3.0); HEMATOCRIT 32.8 % (36.0-47.0); HEMOGLOBIN 10.4 g/dl (12.0-15.5); LYMPH # 1.3 10^3/uL (1.5-5.0); LYMPH % 12.8 % (24.0-44.0); MEAN CORPUSCULAR HEMOGLOBIN 27.9 pg (27.0-33.0); MEAN CORPUSCULAR HGB CONC 31.7 g/dl (32.0-36.5); MEAN CORPUSCULAR VOLUME 87.9 fl (80.0-96.0); MONO # 0.5 10^3/uL (0.0-0.8); MONO % 4.7 % (2.0-8.0); NEUTROPHILS # 8.1 10^3/uL (1.5-8.5); NEUTROPHILS % 80.8 % (36.0-66.0); PLATELET COUNT, AUTOMATED 203 10^3/uL (150-450); RED BLOOD COUNT 3.73 10^6/uL (4.00-5.40)
[2022-05-05 19:45] LABS: ALBUMIN 2.7 GM/DL (3.2-5.2); BILIRUBIN,DIRECT 0.1 MG/DL (0.0-0.2); BILIRUBIN,TOTAL 0.5 MG/DL (0.2-1.0); CALCIUM LEVEL 8.4 MG/DL (8.8-10.2); CREATININE FOR GFR 2.1 MG/DL (0.55-1.30); GLOMERULAR FILTRATION RATE 25.2 (>45); POTASSIUM SERUM 4.2 MEQ/L (3.5-5.1); THYROID STIMULATING HORMONE 1.93 uIU/ML (0.358-3.740); THYROXINE (T4) 8.4 UG/DL (4.5-12.0); TOTAL PROTEIN 6.8 GM/DL (6.4-8.2)
[2022-05-05 20:47] LABS: CK-MB VALUE MASS 25.7 NG/ML (<3.6); MB/CK RELATIVE INDEX 13.46 (< OR =4)
[2022-05-05] MEDS ORDERED: METOPROLOL TART 50 MG TAB PO ONE (21:05)
[2022-05-05 22:11] LABS: CK-MB VALUE MASS 29.2 NG/ML (<3.6); MB/CK RELATIVE INDEX 13.64 (< OR =4)
[2022-05-05] MEDS ORDERED: ASPIRIN 81 MG CHEW TABLET PO ONE (22:35)
[2022-05-05] MEDS ORDERED: HEPARIN DRIP 25,000 UNITS in IV 1 EA IV SCH (22:40)
[2022-05-05] MEDS ORDERED: HEPARIN SOD (PORCINE) 5000UNITS/ML 1ML VIAL/SYRINGE IV ONE (22:40)
[2022-05-05] MEDS: NITROGLYCERIN 0.4 MG SUBL TABLET SL PRN (23:03)
[2022-05-06 01:15] LABS: CK-MB VALUE MASS 31.3 NG/ML (<3.6); MB/CK RELATIVE INDEX 13.55 (< OR =4)
[2022-05-06] MEDS: NITROGLYCERIN 0.4 MG SUBL TABLET SL PRN (01:37)
[2022-05-06 01:40] VITALS: BP 158/62
[2022-05-06] MEDS ORDERED: NITROGLYCERIN 2% OINT 1 GM *U/D* PKT TOP ONE (01:40)
[2022-05-06] MEDS ORDERED: NITROGLYCERIN/D5W 100MCG/ML 25 MG in IV 1 EA IV SCH (03:30)
[2022-05-06 07:02] LABS: INR 1.14
[2022-05-06 07:28] LABS: PARTIAL THROMBOPLASTIN TIME 144.1 SECONDS (25.9-37.0)
[2022-05-06] MEDS ORDERED: HEPARIN SOD (PORCINE) 5000UNITS/ML 1ML VIAL/SYRINGE IV PRN (07:30)
[2022-05-06] MEDS ORDERED: HEPARIN DRIP 25,000 UNITS in IV 1 EA IV SCH (07:30)
[2022-05-06 08:31] VITALS: BP 149/71
== END 2022-05-06 08:48 | disposition short-term general hospital (02) ==
LOC: EDBD 18:10 → M ED 18:10
DX: I21.4 Non-ST elevation (NSTEMI) myocardial infarction (principal); U07.1 COVID-19; J47.9 Bronchiectasis, uncomplicated; K80.20 Calculus of gallbladder without cholecystitis without obstruction; E11.9 Type 2 diabetes mellitus without complications; I11.0 Hypertensive heart disease with heart failure; I50.9 Heart failure, unspecified; Z79.82 Long term (current) use of aspirin; Z79.899 Other long term (current) drug therapy; Z88.5 Allergy status to narcotic agent
CPT/HCPCS: 36600; 71045; 71250; 80048; 80076; 82550; 82553; 82803; 83605; 83880; 84436; 84443; 85025; 85610; 85730; 87040; 87486; 87581; 87633; 87798; 93005; 93041; 94760; 96365; 96366; 96368; 99285; J1644